=== PATIENT | female | born 1990 | race Caucasian/White ===

== ENCOUNTER 2019-11-20 18:12 | Emergency (ER) | payer MEDICAID ==
[2019-11-20 18:37] LABS: ABS Lymphocytes 2.4 10^3/ul (1.0-4.8); ABS Monocytes 0.6 10^3/ul (0-0.8); ABS Neutrophils 2.2 10^3/ul (1.5-7.7); Eosinophil % 0.1 %; Hematocrit 40 % (35-47); Hemoglobin 13.3 g/dL (12.0-16.0); Lymphocyte % 46.3 %; Mean Corpuscular HGB Conc 34 g/dL (31-36); Mean Corpuscular Hemoglobin 30 pg (27-31); Mean Corpuscular Volume 88 fL (80-97); Mean Platelet Volume 7.8 fL (7.4-10.4); Nucleated Red Blood Cells % 0.1; Platelet Count 169 10^3/uL (150-450); Red Cell Distribution Width 13 % (10-15); White Blood Count 5.2 10^3/uL (3.5-10.8)
--- OUTSIDE RECORDS SUMMARY | 2019-11-20 18:44 | XMS REPORT | Summary of Care ---
:1990 Author Organization [facility] Address [address] [place] [address] Care Team Providers Name Role Phone Unavailable Primary Care Provider Unavailable Encounter Details Date Type Department Care Team Description 10/20/2019 Hospital Encounter [facility] [address] [place] [address] Allergies No Known Allergiesdocumented as of this encounter (statuses as of 11/04/2019) Medications No known medicationsdocumented as of this encounter (statuses as of 11/04/2019) Active Problems No known active problemsdocumented as of this encounter (statuses as of 2018) Social History Tobacco Use Types Packs/Day Years Used Date Never Assessed Sex Assigned at Date Recorded Not on file Job Start Date Occupation Industry Not on file Not on file Not on file Travel History Travel Start Travel End No recent travel history available. documented as of this encounter Last Filed Vital Signs Not on filedocumented in this encounter Plan of Treatment Not on filedocumented as of this encounter Results Not on filedocumented in this encounter
--- OUTSIDE RECORDS SUMMARY | 2019-11-20 18:44 | XMS REPORT ---
:1990 Author Organization [facility] Care Team Providers Name Role Phone ELISHA KEENE Unavailable Unavailable SNYDER, AKBAR, Unavailable Unavailable Allergies and Adverse Reactions Allergen Qualifier Severity Reaction(s) Comments No Known Drug Allergy Problems Problem Onset Date Resolved Date Status Comments Diabetes Mellitus Active Hypertension Active Mental Illness Active Suicide Attempt Active Hospital Admission Diagnosis Admission Diagnosis Onset Date Resolved Date Status Comments Anxiety Reaction Active Depression Active Suicidal Ideation Active Medications Home Medications Details Albuterol Sulfate HFA Inhalation metFORMIN HCl Oral Toprol XL Oral Medications Administered Medication Orders Details hydrOXYzine HCl Oral 25 mg (NOW) Administered Route Dose Bolus/Duration Rate/Duration Additive/Diluents/ Constituents Location Comments Date/Time Medications hydrOXYzine PO 25 mg Given: HCl Oral 10/19/2019 23:38 Hospital Discharge Medications Hospital Discharge Prescribed Medication None Procedures Procedure Date Performed Comments No information available Functional Status Functional and Cognitive Assessment Documentation Date Condition Status No impairments noted 10/19/2019 Active Immunizations Medication Dose/Units Lot# Exp. Date Bracelet And Brooch Maker Name Given No information available Results , URINE([facility]IT[place]: 10/19/2019 19:38) [facility] 19:49[facility]Final Results Test Result Flag Reference Range , URINE NEGATIVE NEGATIVE URINALYSIS (W/C+S IF INDICATED)(CATRACHITO: 10/19/2019 19:39) ([facility] 10/19/2019 20: 03)Final Results Test Result Flag Reference Range URINE COLOR YELLOW YELLOW URINE APPEARANCE CLEAR CLEAR URINE SPECIFIC GRAVITY 1.010 1.003-1.035 URINE LEUKOCYTES SMALL(1+) AB NEGATIVE URINE NITRITE NEGATIVE NEGATIVE URINE PH 6.0 5.0-8.0 URINE PROTEIN NEGATIVE NEGATIVE mg/dl URINE GLUCOSE NEGATIVE NEGATIVE mg/dl URINE KETONES NEGATIVE NEGATIVE mg/dl URINE UROBILINOGEN 0.2 NORMAL OR <1 mg/dl URINE BILIRUBIN NEGATIVE NEGATIVE URINE OCCULT BLOOD NEGATIVE NEGATIVE WBC 6-10 AB 0-5 hpf WBC CLUMPS FEW AB NEGATIVE hpf RBC 0-1 0-3 hpf BACTERIA TRACE AB NEGATIVE hpf EPITHELIAL CELLS 2-5 0-5 hpf URINE C+S IF INDICATED PERFORMED NOT INDICATED DRUG SCREEN,URINE(CATRACHITO: 10/19/2019 20:27) ([facility] 10/19/2019 20:27)Final Results Test Result Flag Reference Range SCREEN INTERPRETATION SEE NOTE Methodology for the test(s) below is for screening purposes only and the reference range for these tests is Negative. Positive results should be considered presumptive. . . AMPHETAMINES NEGATIVE Screen Cutoff 1000 ng/ml. . BARBITURATES NEGATIVE Screen Cutoff 200 ng/ml. . BENZODIAZEPINES NEGATIVE Screen Cutoff 300 ng/ml. . COCAINE NEGATIVE Screen Cutoff 300 ng/ml. . OPIATES NEGATIVE Screen Cutoff 300 ng/ml. . PHENCYCLIDINE (PCP) NEGATIVE Screen Cutoff 25 ng/ml. . CANNABIS (THC) NEGATIVE Screen Cutoff 50 ng/ml. . TRICYCLIC ANTIDEPRESSNT NEGATIVE NEGATIVE Screen Cutoff 500 ng/ml. . CBC(CATRACHITO: 10/19/2019 19:54) ([facility] 10/19/2019 19:59)Final Results Test Result Flag Reference Range WBC 6.6 4.3-10.9 x10E3/uL RBC 4.45 3.80-5.30 x10E6/uL HEMOGLOBIN 13.0 11.8-15.8 g/dl HEMATOCRIT 40.1 35.0-47.0 % MCV 90.1 82.0-98.0 fl MCH 29.2 27.5-33.5 pg MCHC 32.4 32.0-36.0 g/dl RDW 12.4 11.5-14.5 % PLATELET COUNT 148 130-400 x10E3/uL MPV 10.6 8.6-12.6 fl SEGMENTED NEUTROPHILS 48.0 44.0-74.0 % LYMPHOCYTES 34.6 15.0-45.0 % MONOCYTES 16.3 H 2.0-13.0 % EOSINOPHILS 0.9 0.0-6.0 % BASOPHILS 0.2 0.0-2.0 % NEUTROPHIL ABSOLUTE 3.2 1.4-7.0 x10E3/uL LYMPHOCYTES ABSOLUTE 2.3 1.0-3.4 x10E3/uL MONOCYTE ABSOLUTE 1.1 H 0.2-1.0 x10E3/uL EOSINOPHIL ABSOLUTE 0.1 0.0-0.5 x10E3/uL BASOPHIL ABSOLUTE 0.0 0.0-0.2 x10E3/uL COMPREHENSIVE W/RATIOS(CATRACHITO: 10/19/2019 19:54) ([facility] 20:14)Final Results Test Result Flag Reference Range GLUCOSE 153 H 70-100 mg/dl BUN 26 H 4-18 mg/dl CREATININE, SERUM 0.95 0.50-1.10 mg/dl SODIUM 141 136-146 mmol/l POTASSIUM 3.6 3.5-5.3 mmol/l CHLORIDE 108 96-109 mmol/l CARBON DIOXIDE 20 20-32 mmol/l ALBUMIN 3.9 3.5-5.0 g/dl PROTEIN, TOTAL 6.8 6.4-8.2 g/dl CALCIUM 8.7 8.4-10.4 mg/dl ALKALINE PHOSPHATASE 63 10-118 U/l SGOT (AST) 18 3-40 U/l SGPT (ALT) 25 7-50 U/l BILIRUBIN, TOTAL 0.12 L 0.30-1.20 mg/dl BUN/CREATININE RATIO 27.4 H 6.0-20.0 GLOBULIN 2.9 2.3-3.5 g/dl ANION GAP 13.0 7.0-16.0 mmol/l OSMOLALITY (CALCULATED) 289 280-300 mos/kg A/G RATIO 1.3 1.0-2.0 ETHANOL (BLOOD)(CATRACHITO: 10/19/2019 19:54) ([facility] 20:14)Final Results Test Result Flag Reference Range ETHANOL (BLOOD) 0.002 0.000-0.010 % This test result should only be used for MEDICAL or THERAPEUTIC purposes. ACETAMINOPHEN(CATRACHITO: 10/19/2019 19:54) ([facility] 10/19/2019 20:14)Final Results Test Result Flag Reference Range ACETAMINOPHEN <15.0 15.0-25.0 ug/ml SALICYLATE(CATRACHITO: 10/19/2019 19:54) ([facility] 10/19/2019 20:14)Final Results Test Result Flag Reference Range SALICYLATE <0.5 0.0-29.9 mg/dL EGFR (CALCULATED)(CATRACHITO: 10/19/2019 19:54) ([facility]/2019 20:14)Final Results Test Result Flag Reference Range EGFR 80 >59 mL/min/1.73m2 EGFR, -DJIBOUTIAN 93 >59 mL/min/1.73m2 Note: Persistent reduction for 3 months or more in an eGFR <60 mL/min/1.73m2 defines CKD. Patients with eGFR values >=60 mL/min/1.73m2 may also have CKD if evidence of persistent proteinuria is present. Additional information may be found at www.kidney.org/[email or web address]. TSH(CATRACHITO: 10/19/2019 19:55) ([facility] 10/19/2019 20:22)Final Results Test Result Flag Reference Range TSH (THYROTROPIN) 0.215 L 0.490-4.670 uIU/ml Social History Social History Element Description Effective Dates Sex Female 1990 Smoking never smoker Unknown Vital Signs Weight: 108.8 kg (240 lb) stated at 10/19/2019 7:45:00 PMHeight: 274.3 cm (108 inches) Per Patient at 10/19/2019 7:45:00 PMBMI (Body Mass Index): 14.5 kg/m2 at 10/19/2019 7:45:00 PM Date/Time Blood Pressure Heart Rate Respiratory Rate Temperature O2 Saturation 10/20/2019 102/67 mmHg 91 /minute 16 /minute 36.72 C 97% 2:56:10 AM 10/19/2019 95 /minute 18 /minute 96% 8:15:00 PM 10/19/2019 90 /minute 20 /minute 96% 8:14:00 PM 10/19/2019 91 /minute 19 /minute 97% 8:13:00 PM 10/19/2019 92 /minute 12 /minute 98% 8:12:00 PM 10/19/2019 94 /minute 20 /minute 97% 8:11:00 PM 10/19/2019 96 /minute 24 /minute 97% 8:10:00 PM 10/19/2019 94 /minute 21 /minute 98% 8:09:00 PM 10/19/2019 94 /minute 17 /minute 97% 8:08:00 PM 10/19/2019 96 /minute 22 /minute 97% 8:07:00 PM 10/19/2019 91 /minute 15 /minute 97% 8:06:00 PM 10/19/2019 100 /minute 15 /minute 98% 8:05:00 PM 10/19/2019 98 /minute 18 /minute 98% 8:04:00 PM 10/19/2019 96 /minute 25 /minute 96% 8:03:00 PM 10/19/2019 91 /minute 17 /minute 96% 8:02:00 PM 10/19/2019 105/69 mmHg 93 /minute 29 /minute 95% 8:01:00 PM 10/19/2019 92 /minute 28 /minute 96% 8:00:00 PM 10/19/2019 93 /minute 19 /minute 97% 7:59:00 PM 10/19/2019 96 /minute 27 /minute 96% 7:58:00 PM 10/19/2019 94 /minute 27 /minute 95% 7:57:00 PM 10/19/2019 97 /minute 28 /minute 96% 7:56:00 PM 10/19/2019 95 /minute 27 /minute 95% 7:55:00 PM 10/19/2019 95 /minute 22 /minute 95% 7:54:00 PM 10/19/2019 99 /minute 25 /minute 94% 7:53:00 PM 10/19/2019 94 /minute 19 /minute 95% 7:52:00 PM 10/19/2019 95 /minute 19 /minute 95% 7:51:00 PM 10/19/2019 96 /minute 22 /minute 95% 7:50:00 PM 10/19/2019 94 /minute 28 /minute 94% 7:49:00 PM 10/19/2019 112/68 mmHg 96 /minute 22 /minute 37.11 C 96% 7:48:11 PM 10/19/2019 97 /minute 25 /minute 94% 7:48:00 PM 10/19/2019 100 /minute 19 /minute 95% 7:47:00 PM 10/19/2019 97 /minute 21 /minute 94% 7:46:00 PM 10/19/2019 97 /minute 21 /minute 94% 7:45:00 PM Hospital Discharge Instructions Instruction Thank you for visiting the [facility]-Emergency Department. You have been evaluated today by ELISHA KEENE MD for the following condition(s) : Suicidal ideation. Depression. Anxiety reaction. The following test(s) and/or procedure(s) were performed during your visit today. Laboratory Tests Acetaminophen LevelRPRAlcoholSalicylate LevelCBC w DiffTSHComprehensive PanelUrinalysis, Culture if indicatedPregnancy Urine QualUrine Drug Screen Diagnostic Studies EKG Hospital Discharge Diagnoses Diagnosis Onset Date Resolved Date Status Comments Anxiety Reaction Active Depression Active Suicidal Ideation Active Reason For Visit 941 Reason For Referral None Health Concerns Section Concern Status No information available Medical Equipments Implanted Device Manufacturing Date Expiration Date No information available Assessments Assessment You have been evaluated by ELISHA KEENE MD for the following conditions: Suicidal ideation. Anxiety reaction. Depression. The following test(s) and/or procedure(s) were performed during your visit today. Laboratory Tests: Acetaminophen Level, Alcohol, CBC w Diff, Comprehensive Panel, Urine Qual, RPR, Salicylate Level, TSH, Urinalysis, Culture if indicated, and Urine Drug Screen Diagnostic Studies: EKG Goals Observation Goal Status No information available Treatment Plan Planned Care Start Date No information available Encounters Encounter Diagnosis Location Date Anxiety Reaction [facility] 10/19/2019 Depression [facility] 10/19/2019 Suicidal Ideation [facility] 10/19/2019
--- OUTSIDE RECORDS SUMMARY | 2019-11-20 18:44 | XMS REPORT ---
:1990 Author Organization [facility] Care Team Providers Name Role Phone SHON SUGGS Unavailable Unavailable Allergies and Adverse Reactions Allergen Qualifier Severity Reaction(s) Comments Benzodiazepines Problems Problem Onset Date Resolved Date Status Comments Adjustment Disorder RuleOut Anxiety Reaction Active Asthma Active Bipolar Disorder RuleOut Depression Active Diabetes Mellitus Active Hypertension Active Mental Illness Active Suicidal Ideation Active Suicide Attempt Active Hospital Admission Diagnosis Admission Diagnosis Onset Date Resolved Date Status Comments Suicidal Ideation Active Medications Home Medications Details [place] Maintena Intramuscular Prefilled Syringe 300 mg, monthly, last dose nov.01 Amoxicillin-Pot Clavulanate Oral Tablet 875-125 mg, 1 tablet 2x a day, Started : 11/02/2019, Stopped: 11/07/2019, 5 days Benztropine 1 milligram 2 Times Per Day chlorproMAZINE HCl Oral Tablet 50 mg, 1 tablet daily, @ noon chlorproMAZINE HCl Oral Tablet 100 mg, 1 tablet 2x a day Depakote Sprinkles Oral Capsule Delayed Release Sprinkle 125 mg, 1000 mg 2x a day Diclofenac Sodium Transdermal Gel 1 %, 2 grams 4x a day metFORMIN 500 milligram 2 Times Per Day Mirtazapine Oral 30 mg Once Daily At Bedtime Medications Administered Medication Orders Details Augmentin Oral 875 mg Benztropine Mesylate Oral 1 mg (NOW x1) chlorproMAZINE HCl Oral 50 mg (NOW x1) Depakote Oral 1000 mg (NOW x1, Do not crush or chew) metFORMIN HCl Oral 500 mg (NOW x1) Administered Route Dose Bolus/Duration Rate/Duration Additive/Diluents/ Constituents Location Comments Date/Time Medications Augmentin PO 875 Given: Oral mg 11/05/2019 12:43 Benztropine PO 1 mg Given: Mesylate Oral 11/05/2019 12:44 chlorproMAZIN PO 50 mg Given: E HCl Oral 11/05/2019 12:44 Depakote PO 1000 Given: Sprinkles mg 11/05/2019 Oral 12:45 metFORMIN HCl PO 500 Given: Oral mg 11/05/2019 12:45 Hospital Discharge Medications Hospital Discharge Prescribed Medication None Procedures Procedure Date Performed Comments Carpal Tunnel Surgery Functional Status Functional and Cognitive Assessment Documentation Date Condition Status No information available Immunizations Medication Dose/Units Lot# Exp. Date [place]yer Name Given No information available Results VALPROIC ACID(CATRACHITO: 11/05/2019 12:22) ([facility] 11/05/2019 12:58)Final Results Test Result Flag Reference Range VALPROIC ACID 43.3 L 50.0-100.0 ug/ml For patients taking once-daily Divalproex-ER(extended release), a blood sample should be taken pre-dose, optimally 24 hours, (but at least 18 hours)after the previous dose to most closely approximate true Valproic Acid trough concentration. Specimens drawn less than 24 hours after the last dose may result in Valproic Acid concentrations up to 25% higher than true trough levels. Social History Social History Element Description Effective Dates Sex Female 1990 Smoking never smoker Unknown Vital Signs Weight: 108.8 kg (240 lb) stated at 11/05/2019 9:29:59 AMHeight: 165.0 cm (65 inches) Per Patient at 11/05/2019 9:29:59 AMBMI (Body Mass Index): 40.0 kg/m2 at 11/05/2019 9:29:59 AM Date/Time Blood Pressure Heart Rate Respiratory Rate Temperature O2 Saturation 11/05/2019 114/84 mmHg 103 /minute 18 /minute 36.67 C 97% 3:38:29 PM 11/05/2019 132/85 mmHg 105 /minute 16 /minute 36.72 C 98% 12:30:00 PM 11/05/2019 135/95 mmHg 135 /minute 16 /minute 37.17 C 97% 9:45:02 AM Hospital Discharge Instructions Instruction Thank you for visiting the [facility]-Emergency Department. You have been evaluated today by SHON SUGGS MD for the following condition(s): Suicidal ideation. The following test(s) and/or procedure(s) were performed during your visit today. Laboratory Tests Valproic Acid (Depakene) Hospital Discharge Diagnoses Diagnosis Onset Date Resolved Date Status Comments Suicidal Ideation Active Reason For Visit 941 - homeless/SI Reason For Referral None Health Concerns Section Concern Status No information available Medical Equipments Implanted Device Manufacturing Date Expiration Date No information available Assessments Assessment You have been evaluated by SHON SUGGS MD for the following conditions: Suicidal ideation. The following test(s) and/or procedure(s) were performed during your visit today. Laboratory Tests: Valproic Acid (Depakene Goals Observation Goal Status No information available Treatment Plan Planned Care Start Date No information available Encounters Encounter Diagnosis Location Date Suicidal Ideation [facility] 11/05/2019
--- OUTSIDE RECORDS SUMMARY | 2019-11-20 18:44 | XMS REPORT | Summary of Care ---
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 Abs Monocyte 0.80 0 - 0.8 [facility] 10*3/uL [facility] CG Abs Eosinophil 0.12 0 - 0.5 [facility] 10*3/uL [facility] Abs Basophil 0.02 0 - 0.2 [facility] 10*3/uL [facility] Nucleated Red Blood 0 0 - 0 [facility] Cells /100{WBCs} [facility] at Specimen EDTA Whole Blood Performing Organization Address City/State/Zipcode Phone Number [facility] PATHOLOGY AT [facility] [address] [place] [address] [facility] at [address] [place] [address] POCT glucose, docked (10/27/2019 7:44 AM EST) POC Glucose 133 70 - 140 mg/dL [facility] POC Specimen Whole Blood Performing Organization Address [facility] Phone Number POINT OF CARE TEST [address] [place] [address] [facility] POC [address] [place] [address] Valproic acid level, total (10/27/2019 6:35 AM EST) Valproic Acid 78 50 - 100 ug/ml [facility] at Specimen Plasma Performing Organization Address [facility] Phone Number [facility] PATHOLOGY AT [facility] [address] [place] [address] [phone] [facility] at [address] [place] [id number] XR Elbow 2 Views Left (10/26/2019 5:45 PM EST) Specimen Narrative Performed At PROCEDURE INFORMATION: [facility] Exam: XR Left Elbow Exam date and time: 10/26/2019 5:28 PM Age: 29 years old Clinical history: Pain; Elbow; Left; Additional info: Patient has left elbow swelling. TECHNIQUE: Imaging protocol: XR Left elbow. Views: 1 or 2 views. COMPARISON: No relevant prior studies available. FINDINGS: Bones/joints: Small olecranon spur. Soft tissues: Normal. Other findings: Limited lateral view. IMPRESSION: 1. Limited exam. 2. No definite evidence of acute bony or joint abnormality. THIS DOCUMENT HAS BEEN ELECTRONICALLY SIGNED BY KENNETH HAMILTON MD Procedure Note Interface, Received Via [email or web address] System - 10/26/2019 7:26 PM EST PROCEDURE INFORMATION: Exam: XR Left Elbow Exam date and time: 10/26/2019 5:28 PM Age: 29 years old Clinical history: Pain; Elbow; Left; Additional info: Patient has left elbow swelling. TECHNIQUE: Imaging protocol: XR Left elbow. Views: 1 or 2 views. COMPARISON: No relevant prior studies available. FINDINGS: Bones/joints: Small olecranon spur. Soft tissues: Normal. Other findings: Limited lateral view. IMPRESSION: 1. Limited exam. 2. No definite evidence of acute bony or joint abnormality. THIS DOCUMENT HAS BEEN ELECTRONICALLY SIGNED BY KENNETH HAMILTON MD Performing Organization Address City/State/Zipcode Phone Number [facility] [address] [place] [address] POCT glucose, docked (10/26/2019 8:05 AM EST) POC Glucose 101 70 - 140 mg/dL [facility] POC Specimen Whole Blood Performing Organization Address City/[facility] Phone Number POINT OF CARE TEST [address] [place] [address] [facility] POC [address] [place] [address] POCT glucose, docked (10/25/2019 5:30 PM EST) POC Glucose 336 (H) 70 - 140 mg/dL [facility] POC Specimen Whole Blood Performing Organization Address [facility] Phone Number POINT OF CARE TEST [address] [place] [address] [facility] POC [address] [place] [address] POCT glucose, docked (10/25/2019 9:09 AM EST) POC Glucose 157 (H) 70 - 140 mg/dL [facility] POC Specimen Whole Blood Performing Organization Address [facility] Phone Number POINT OF CARE TEST [address] [place] [address] [facility] POC [address] [place] [address] documented in this encounter Visit Diagnoses Diagnosis Borderline personality disorder - Primary Bipolar disorder Bipolar disorder, unspecified Intellectual disability Unspecified intellectual disabilities Class 3 severe obesity due to excess calories without serious comorbidity with body mass index (BMI) of 40.0 to 44.9 in adult Type 2 diabetes mellitus without complication, without long-term current use of insulin documented in this encounter Administered Medications Medication Order MAR Action Action Date Dose Rate Site acetaminophen (TYLENOL) tablet Given 10/28/2019 3:25 PM EST 650 mg 650 mg 650 mg, Oral, Every 4 hours PRN, Mild Pain (Pain Scale Score 1-3), Pain, Starting 10/23/19 at 2256, For 30 days, MDD 4, Given 10/27/2019 8:28 AM EST 650 mg Given 10/26/2019 4:40 PM EST 650 mg amoxicillin-clavulanate (AUGMENTIN) Given 11/01/2019 7:59 AM EST 1 tablet 875-125 MG per tablet 1 tablet 1 tablet, Oral, Every 12 hours Standard (2 times per day), First dose (after last modification) on Mon10/27/19 at 1300, For 10 days Given 10/31/2019 9:11 PM EST 1 tablet Given 10/31/2019 8:23 AM EST 1 tablet benztropine (COGENTIN) tablet 1 mg Given 11/01/2019 7:58 AM EST 1 mg 1 mg, Oral, 2 Times Daily, First dose on Mon10/24/19 at 0900, For 30 days Given 10/31/2019 9:11 PM EST 1 mg Given 10/31/2019 8:23 AM EST 1 mg chlorproMAZINE (THORAZINE) tablet 100 mg Given 10/29/2019 7:17 PM EST 100 mg 100 mg, Oral, Three Times Daily-PRN, agitation, Starting Mon10/25/19 at 1412, For 30 days Given 10/27/2019 9:47 AM EST 100 mg Given 10/26/2019 4:40 PM EST 100 mg chlorproMAZINE (THORAZINE) tablet 100 mg Given 11/01/2019 7:58 AM EST 100 mg 100 mg, Oral, 2 Times Daily, First dose (after last modification) on Mon10/25/19 at 2100, For 10 days Given 10/31/2019 9:21 PM EST 100 mg Given 10/31/2019 8:23 AM EST 100 mg chlorproMAZINE (THORAZINE) tablet 50 mg Given 11/01/2019 12:35 PM EST 50 mg 50 mg, Oral, Every 24 hours, First dose on Mon10/29/19 at 1300, For 30 days Given 10/31/2019 12:38 PM EST 50 mg Given 10/30/2019 1:37 PM EST 50 mg Diclofenac Sodium (VOLTAREN) 1 % gel 2 g Given 11/01/2019 7:58 AM EST 2 g 2 g, Topical, Four Times Daily Standard, First dose on Mon10/26/19 at 1300, For 30 days, Apply to left arm, Given 10/31/2019 9:14 PM EST 2 g Given 10/31/2019 6:32 PM EST 2 g divalproex (DEPAKOTE SPRINKLE) capsule Given 11/01/2019 7:58 AM EST 1,000 mg 1,000 mg 1,000 mg, Oral, Every 12 hours Standard (2 times per day), First dose on Sharda 10/24/19 at 0900, For 30 days, Do not crush or chew, Given 10/31/2019 9:13 PM EST 1,000 mg Given 10/31/2019 8:23 AM EST 1,000 mg hydrOXYzine (ATARAX) tablet 50 mg Given 10/30/2019 10:28 AM EST 50 mg 50 mg, Oral, Every 6 hours PRN, Anxiety, Sleep, Starting 10/23/19 at 2256, For 30 days Given 10/29/2019 10:25 AM EST 50 mg Given 10/28/2019 3:26 PM EST 50 mg ibuprofen (ADVIL,MOTRIN) tablet 400 mg Given 10/31/2019 12:29 PM EST 400 mg 400 mg, Oral, Every 6 hours PRN, Moderate Pain (Pain Scale Score 4-6), Starting 10/27/19 at 1224, For 699 hours, Take with food., Given 10/28/2019 1:11 PM EST 400 mg Given 10/28/2019 2:47 AM EST 400 mg mirtazapine (REMERON) tablet 30 mg Given 10/31/2019 9:11 PM EST 30 mg 30 mg, Oral, Nightly, First dose (after last modification) on Sharda 10/24/19 at 2200, For 30 days Given 10/30/2019 9:20 PM EST 30 mg Given 10/29/2019 8:00 PM EST 30 mg phenylephrine-mineral oil-petrolatum (PREPARATION Given 10/29/2019 7:59 PM EST H) rectal ointment Rectal, 2 Times Daily PRN, Hemorrhoids, Starting 10/28/19 at 1228, For 30 days Given 10/29/2019 9:45 AM EST Given 10/28/2019 2:47 PM EST Medication Order MAR Action Action Date Dose Rate Site ARIPiprazole ER (ABILIFY Given 10/30/2019 1:56 PM 300 mg Right Deltoid MAINTENA) extended-release EST injectable suspension 300 mg 300 mg, Intramuscular, Once, Mon10/30/19 at 1300, For 1 dose chlorproMAZINE (THORAZINE) tablet 100 mg Given 10/25/2019 10:20 AM EST 100 mg 100 mg, Oral, Before Breakfast, First dose (after last modification) on Mon10/25/19 at 1100, For 30 days chlorproMAZINE HCl (THORAZINE) Given 10/24/2019 4:54 PM EST 100 mg Right Deltoid injection 100 mg 100 mg, Intramuscular, Once, [facility] 10/24/19 at 1645, For 1 dose, Inject slowly, deep into upper outer quadrant of buttock. Avoid skin contact with solution; may cause contact dermatitis. Do not administer SubQ (tissue damage and irritation may occur)., diphenhydrAMINE (BENADRYL) injection 50 mg Given 10/24/2019 3:04 PM EST 50 mg 50 mg, Intramuscular, Once, Sharda 10/24/19 at 1415, For 1 dose haloperidol lactate (HALDOL) injection 5 mg Given 10/24/2019 3:04 PM EST 5 mg 5 mg, Intramuscular, Once, Sharda 10/24/19 at 1415, For 1 dose ibuprofen (ADVIL,MOTRIN) tablet 200 mg Given 10/27/2019 6:22 AM EST 200 mg 200 mg, Oral, Every 6 hours PRN, Moderate Pain (Pain Scale Score 4-6), Starting 10/26/19 at 1528, For 30 days, Take with food., Given 10/26/2019 5:57 PM EST 200 mg LORazepam (ATIVAN) injection 2 mg Given 10/24/2019 3:04 PM EST 2 mg 2 mg, Intramuscular, Once, Sharda 10/24/19 at 1415, For 1 dose metFORMIN (GLUCOPHAGE) tablet 500 mg Given 10/24/2019 8:56 AM EST 500 mg 500 mg, Oral, 2 Times Daily With Meals, Indications: Type 2 Diabetes Mellitus, First dose on Mon10/24/19 at 0900, For 30 days metFORMIN (GLUCOPHAGE) tablet 500 mg Given 10/31/2019 8:23 AM EST 500 mg 500 mg, Oral, Daily with Breakfast, Indications: Type 2 Diabetes Mellitus, First dose (after last modification) on Mon10/25/19 at 0800, For 7 days Given 10/30/2019 8:49 AM EST 500 mg Given 10/29/2019 9:22 AM EST 500 mg documented in this encounter
--- OUTSIDE RECORDS SUMMARY | 2019-11-20 18:44 | XMS REPORT ---
:1990 Author Organization [facility] Care Team Providers Name Role Phone ASHLEY MUNOZ Unavailable Unavailable Allergies and Adverse Reactions Allergen Qualifier Severity Reaction(s) Comments Benzodiazepines Problems Problem Onset Date Resolved Date Status Comments Anxiety Reaction Active Asthma Active Bipolar Disorder RuleOut Depression Active Diabetes Mellitus Active Hypertension Active Mental Illness Active Suicidal Ideation Active Suicide Attempt Active Hospital Admission Diagnosis Admission Diagnosis Onset Date Resolved Date Status Comments No information available Medications Home Medications Details No information available Medications Administered Administered Route Dose Bolus/Duration Rate/Duration Additive/Diluents/ Constituents Location Comments Date/Time Medications No information available Hospital Discharge Medications Hospital Discharge Prescribed Medication None Procedures Procedure Date Performed Comments Carpal Tunnel Surgery Functional Status Functional and Cognitive Assessment Documentation Date Condition Status No impairments noted 11/04/2019 Active Immunizations Medication Dose/Units Lot# Exp. 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 11/05/2019 00:44)Final Results Test Result Flag Reference Range , URINE NEGATIVE NEGATIVE DRUG SCREEN,URINE(CATRACHITO: 11/05/2019 00:11) ([facility] 11/05/2019 00:51)Final Results Test Result Flag Reference Range SCREEN [...] NEGATIVE NEGATIVE Screen Cutoff 500 ng/ml. . URINALYSIS (W/C+S IF INDICATED)(CATRACHITO: 11/05/2019 00:11) ([facility] 11/05/[facility] 01: 07)Final Results Test Result Flag Reference Range URINE COLOR YELLOW YELLOW URINE APPEARANCE CLEAR CLEAR URINE SPECIFIC GRAVITY 1.015 1.003-1.035 URINE LEUKOCYTES SMALL(1+) AB NEGATIVE URINE NITRITE NEGATIVE NEGATIVE URINE PH 6.0 5.0-8.0 URINE PROTEIN NEGATIVE NEGATIVE mg/dl URINE GLUCOSE NEGATIVE NEGATIVE mg/dl URINE KETONES NEGATIVE NEGATIVE mg/dl URINE UROBILINOGEN 0.2 NORMAL OR <1 mg/dl URINE BILIRUBIN NEGATIVE NEGATIVE URINE OCCULT BLOOD NEGATIVE NEGATIVE WBC 11-20 AB 0-5 hpf RBC 1-2 0-3 hpf BACTERIA TRACE AB NEGATIVE hpf EPITHELIAL CELLS 5-9 0-5 hpf MUCOUS THREADS 2+ AB NEGATIVE hpf URINE C+S IF INDICATED PERFORMED AB INDICATED URINE CULTURE REPORT TO FOLLOW. ELECTROCARDIOGRAM-EMERGENCY DEPT (MsgRcvd 11/05/2019 06:14)Corrected results Test Result Flag Reference Range ADDENDUM Vent Rate: 110 bpm RR Interval: 545 msec MI Interval: 164 msec QRS Duration: 91 msec QT Interval: 327 msec QTC Interval: 443 msec P-R-T [place]: 17 - -3 - 29 degrees Sinus tachycardia...rate> 99 normal axis. normal QRS. no acute ST elevation. QT intervals normal QRS AMPLITUDE VARIABILITY- POSSIBLY RESPIRATORY CLIN JESSICA REC Study Date: Electronically Signed By: TONA GIRON MD Date: 11/05/2019 06:14 ORIGINAL Vent Rate: 110 bpm RR Interval: 545 msec MI Interval: 164 msec QRS Duration: 91 msec QT Interval: 327 msec QTC Interval: 443 msec P-R-T [place]: 17 - -3 - 29 degrees Sinus tachycardia...rate> 99 normal axis. normal QRS. no acute ST elevation. QT intervals normal Study Date: Electronically Signed By: ASHLEY MUNOZ MD Date: 11/05/2019 04:26 COMPREHENSIVE W/RATIOS(CATRACHITO: 11/05/2019 00:43) ([facility] [place]/05/[place] 01:04)Final Results Test Result Flag Reference Range GLUCOSE 140 H 70-100 mg/dl BUN 24 H 4-18 mg/dl CREATININE, SERUM 1.14 H 0.50-1.10 mg/dl SODIUM 141 136-146 mmol/l POTASSIUM 4.2 3.5-5.3 mmol/l CHLORIDE 108 96-109 mmol/l CARBON DIOXIDE 23 20-32 mmol/l ALBUMIN 4.1 3.5-5.0 g/dl PROTEIN, TOTAL 7.6 6.4-8.2 g/dl CALCIUM 9.5 8.4-10.4 mg/dl ALKALINE PHOSPHATASE 65 10-118 U/l SGOT (AST) 17 3-40 U/l SGPT (ALT) 19 7-50 U/l BILIRUBIN, TOTAL 0.17 L 0.30-1.20 mg/dl BUN/CREATININE RATIO 21.1 H 6.0-20.0 GLOBULIN 3.5 2.3-3.5 g/dl ANION GAP 10.0 7.0-16.0 mmol/l OSMOLALITY (CALCULATED) 288 280-300 mos/kg A/G RATIO 1.2 1.0-2.0 ETHANOL (BLOOD)(CATRACHITO: 11/05/2019 00:43) ([facility] 11/05/2019 01:04)Final Results Test Result Flag Reference Range ETHANOL (BLOOD) 0.002 0.000-0.010 % This test result should only be used for MEDICAL or THERAPEUTIC purposes. ACETAMINOPHEN(CATRACHITO: 11/05/2019 00:43) ([facility] 11/05/2019 01:04)Final Results Test Result Flag Reference Range ACETAMINOPHEN <15.0 15.0-25.0 ug/ml SALICYLATE(CATRACHITO: 11/05/2019 00:43) ([facility] 11/05/2019 01:04)Final Results Test Result Flag Reference Range SALICYLATE <0.5 0.0-29.9 mg/dL EGFR (CALCULATED)(CATRACHITO: 11/05/2019 00:43) ([facility] 11/05/2019 01:04)Final Results Test Result Flag Reference Range EGFR 64 >59 mL/min/1.73m2 EGFR, -SRI LANKAN 75 >59 mL/min/1.73m2 Note: Persistent reduction for 3 months or more in an eGFR <60 mL/min/1.73m2 defines CKD. Patients with eGFR values >=60 mL/min/1.73m2 may also have CKD if evidence of persistent proteinuria is present. Additional information may be found at [email or web address]. TSH(CATRACHITO: 11/05/2019 00:43) (MsgRcvd 11/05/2019 01:11)Final Results Test Result Flag Reference Range TSH (THYROTROPIN) 8.530 H 0.490-4.670 uIU/ml CBC(CATRACHITO: 11/05/2019 00:43) (MsgRcvd 11/05/2019 01:36)Final Results Test Result Flag Reference Range WBC 6.1 4.3-10.9 x10E3/uL RBC 4.43 3.80-5.30 x10E6/uL HEMOGLOBIN 13.1 11.8-15.8 g/dl HEMATOCRIT 40.4 35.0-47.0 % MCV 91.2 82.0-98.0 fl MCH 29.6 27.5-33.5 pg MCHC 32.4 32.0-36.0 g/dl RDW 11.7 11.5-14.5 % PLATELET COUNT 179 130-400 x10E3/uL MPV 10.0 8.6-12.6 fl SEGMENTED NEUTROPHILS 46.2 44.0-74.0 % LYMPHOCYTES 41.4 15.0-45.0 % MONOCYTES 10.9 2.0-13.0 % EOSINOPHILS 1.3 0.0-6.0 % BASOPHILS 0.2 0.0-2.0 % NEUTROPHIL ABSOLUTE 2.8 1.4-7.0 x10E3/uL LYMPHOCYTES ABSOLUTE 2.5 1.0-3.4 x10E3/uL MONOCYTE ABSOLUTE 0.7 0.2-1.0 x10E3/uL EOSINOPHIL ABSOLUTE 0.1 0.0-0.5 x10E3/uL BASOPHIL ABSOLUTE 0.0 0.0-0.2 x10E3/uL Social History Social History Element Description Effective Dates Sex Female 1990 Smoking never smoker Unknown Vital Signs Weight: 108.8 kg (240 lb) at 11/04/2019 10:59:59 PMHeight: 165.0 cm (65 inches ) Per Patient at 11/04/2019 10:59:59 PMBMI (Body Mass Index): 40.0 kg/m2 at 10:59:59 PM Date/Time Blood Pressure Heart Rate Respiratory Rate Temperature O2 Saturation 11/05/2019 128/88 mmHg 90 /minute 16 /minute 98% 6:45:00 AM 11/04/2019 137/92 mmHg 123 /minute 22 /minute 36.72 C 98% 11:06:01 PM Hospital Discharge Instructions Instruction Thank you for visiting the [facility]. You have been evaluated today by ASHLEY MUNOZ MD for the following condition(s): Chronic bipolar I disorder currently in full remission. Moderately depressed without psychosis. Probable adjustment disorder with disturbance of conduct and depressed mood. The following test(s) and/or procedure(s) were performed during your visit today. Laboratory Tests Acetaminophen LevelRPRAlcoholSalicylate LevelCBC w DiffTSHComprehensive PanelUrinalysis, Culture if indicatedPregnancy Urine QualUrine Drug Screen Diagnostic Studies EKG INSTRUCTIONS Warnings: Further evaluation is necessary. Follow-up: Follow up with your healthcare provider Juan Miguel Franco as scheduled. Summary of care provided to follow-up provider. Follow up contact number [phone]. Understanding of the discharge instructions verbalized. ADDITIONAL INFORMATION Adjustment DisorderLife changes-work, family, parents, children-each can cause a great deal of stress in life. An adjustment disorder means you have trouble dealing with this change and stress. This problem can have ginny us results. You may feel helpless, depressed, make bad decisions, or even feel like you want to hurt yourself. Adjustment disorder can cause anxiety or depression. It is triggered by daily stresses such as: of a loved oneDivorceMarriageGeneral life changes such as changing or leaving a jobMovingIllness or other health issue for you or a family memberSexMoney Symptoms may include: Sadness or cryingAnxietyInsomniaPoor concentrationTrouble doing simple thingsNew problems at work or with family or friendsLoss of self-esteemSense of hopelessnessFeeling trapped or cut off from others With this condition, it is common to feel sad, guilty, hopeless, and restless. These feelings may continue for weeks or months. It can be helpful to identify what is causing the additional stress and ta ke steps to get extra support. If new stressful events do not happen, it is likely that you will gradually start feeling better. Home careIf you have been given a prescription for medicine,take it as directed.It helps to talk about your feelings and thoughts with family or friends who understand and support you. Follow-up care Follow up with your healthcare provider, or therapist as advised. Let them know if this condition does not improve or gets worse. When to seek medical adviceCall your healthcare provider right away if any of these happen: Worsening depression or anxietyFeeling out of controlThoughts of harming yourself or anotherBeing unable to care for yourself [phone] [employer] [place] [address], [place] [address]. All rights reserved. This information is not intended as a substitute for professional medical care. Always follow your healthcare professional's instructions. Bipolar DisorderBipolar disorder is an illness that causes strong mood swings between depression and "josé". It used to be called "manic depression." The mood swings are different from the normal ups and downs we all experience in our lives. They are more severe, last longer, and can interfere with work and relationships. These episodes are changes from our usual moods and behavior. Their severity can be mild, or drastic and explosive. In a manic episode, you may think fast and do things quickly. It may seem like you are getting a lot done. At first, this may feel very good. But in the extreme this can lead to a lifestyle that is disorganized, chaotic, and includes risky behavior (spending sprees, sexual acting-out, or drug use). In later stages, it may affect eating (no interest in food) and sleeping ( unable to sleep for days at a time). Speech may s peed up and become difficult for others to understand. You may appear to others as if you are in your own world.In a depressive episode, you may feel a lack of interest in normal activities. Sometimes there is sadness or guilt without an y clear reason. Thinking may become slow and there can be a lack energy or feeling of hopelessness. Some people have thoughts of harming themselves at this stage. Thoughts can even turn to suicide. Between these phases you may actually feel OK. This does not mean that the illness is gone. People with this disorder will usually have to treat it all of their life. Medicine and good care can greatly reduce the symptoms. The exact cause of this illness is unknown. However, there is a genetic link that makes a person more likely to get this problem. Also, the use of drugs such as speed (amphetamine) and cocaine increase the chances of this illness appearing. Home careHere is what you can do at home: Ongoing care and support help people manage this disease. Find a healthcare provider and therapist who meet your needs. Seek help when you feel like you may be heading into either a manic episode or a depressive state. Be sure to take your medicine and get regular blood work to check the levels of medicine in your body. Take the medicine and get the follow-up lab work as prescribed,even if you think you don't need to do it. Be certain to tell each of your healthcare providers about all of the prescription and [id number] medicines, and supplements you take.Certain supplements interact with medicines and result in da ngerous side effects. You can also use your pharmacist as a resource person when you have questions about medicine interactions.Talk with your family and trusted friends about your thoughts and feelings. Ask them to help you lila gnize behavior changes early so you can get help and medicines can be adjusted.Alcohol and drugs can bring on an episode, and make them worseIf your life is severely impacted by this illness, the Americans with Disabilities Act ( ADA) may prov aby help. The ADA protects people with chronic physical and mental health problems. If you are having trouble keeping jobs, managing workplace issues, or caring for yourself because of your bipolar diso rder, contact your local ADA office to see if it can help. The [place] Department of Justice operates a toll-free ADA information line at: 980.753.6079 (Voice); or 829-821-0550 (TTY). It can help you locate a local office. Follow-up care Follow up with your healthcare provider or therapist as advised. They can help you to find ways to improve your life. Call [phone] if any of these happen: You have suicidal thoughts, a plan, and the means to harm yourself, or serious thoughts of hurting someone elseTrouble breathingConfusionDrowsiness or trouble wakeningFainting or loss of consciousness Rapid heart rate, very low heart rate, or a new irregular heart rateSeizureNew chest pain that becomes more severe, lasts longer, or spreads into your shoulder , arm, neck, jaw, or back When to seek medical advice Call your healthcare provider right away if any of these happen: Feeling like your symptoms are getting worse (depression, agitation, and excess energy)Unable to eat or sleep for more than 48 hoursFeeling out of control (racing thoughts, or poor concentration)Feeling like you want to harm yourself or another Being unable to care for yourself [phone] [employer] [place] [address]. All rights reserved. This information is not intended as a substitute for professional medical care. Always follow your healthcare professional's instructions. Hospital Discharge Diagnoses Diagnosis Onset Date Resolved Date Status Comments No information available Reason For Visit 941. Reason For Referral None Health Concerns Section Concern Status No information available Medical Equipments Implanted Device Manufacturing Date Expiration Date No information available Assessments Assessment You have been evaluated by ASHLEY MUNOZ MD for the following conditions: Probable adjustment disorder with disturbance of conduct and depressed mood. Chronic bipolar I disorder currently in full remission. Moderately depressed without psychosis. The following test(s) and/or procedure(s) were performed during your visit today. Laboratory Tests: Acetaminophen Level, Alcohol, CBC w Diff, Comprehensive Panel, Urine Qual, RPR, Salicylate Level, TSH, Urinalysis, Culture if indicated, and Urine Drug Screen Diagnostic Studies: EKG Goals Observation Goal Status No information available Treatment Plan Planned Care Start Date No information available Encounters Encounter Diagnosis Location Date No information available [facility] 11/04/2019
--- OUTSIDE RECORDS SUMMARY | 2019-11-20 18:44 | XMS REPORT | Summary of Care ---
:1990 Author Organization [facility] Address [address] [place] [address] Care Team Providers Name Role Phone Unavailable Primary Care Provider Unavailable Encounter Details Date Type Department Care Team Description 11/05/2019 Hospital Encounter [facility] [address] [place] [address] Allergies No Known Allergiesdocumented as of this encounter (statuses as of 11/20/2019) Medications Medication Sig Dispensed Refills Start Date End Date Status Divalproex Sodium 125 Take 1,000 mg by 0 Active MG Oral Capsule mouth Two Times Delayed Release Daily Sprinkle (DEPAKOTE SPRINKLE) ARIPiprazole ER 300 MG Inject into the 0 Active Intramuscular muscle Suspension Reconstituted ER (ABILIFY MAINTENA) Benztropine Mesylate 1 Take 1 mg by 0 Active MG Oral Tablet mouth Two Times (COGENTIN) Daily metFORMIN HCl 500 MG Take 500 mg by 0 Active Oral Tablet mouth Two times (GLUCOPHAGE) daily with meals Mirtazapine 30 MG Oral Take 1 tablet by 30 tablet 0 10/31/2019 11/30/2019 Active Tablet (REMERON) mouth nightly chlorproMAZINE HCl 100 Take 1 tablet by 60 tablet 0 10/31/2019 11/30/2019 Active MG Oral Tablet mouth Two Times (THORAZINE) Daily chlorproMAZINE HCl 50 Take 1 tablet by 30 tablet 0 11/01/2019 12/01/2019 Active MG Oral Tablet mouth every 24 (THORAZINE) (twenty-four) hours Diclofenac Sodium 1 % Apply 2 g 1 Tube 0 10/31/2019 Active Transdermal Gel topically Four (VOLTAREN) times daily documented as of this encounter (statuses as of 11/20/2019) Active Problems Problem Noted Date Borderline personality disorder 10/24/2019 Intellectual disability 10/24/2019 Class 3 severe obesity due to excess calories without serious comorbidity 10/2019 with body mass index (BMI) of 40.0 to 44.9 in adult Type 2 diabetes mellitus without complication, without long-term current 10/24 use of insulin Bipolar disorder 10/23/2019 documented as of this encounter (statuses as of 11/20/2019) Social History Tobacco Use Types Packs/Day Years [...]
[2019-11-20 18:51] LABS: INR 0.91 (0.82-1.09)
[2019-11-20 18:55] LABS: Albumin/Globulin Ratio 1.4 (1-3); EGFR African American 69.8 (>60); EGFR Non-African American 57.7 (>60); Globulin 2.9 g/dL (2-4); Potassium 3.8 mmol/L (3.5-5.0); Total Bilirubin 0.2 mg/dL (0.2-1.0); Total Protein 6.9 g/dL (6.4-8.9)
[2019-11-20] MEDS ORDERED: Al Hydrox/Mg Hydrox/Simet LIQ* 30 ML UDC PO ONE (19:00)
[2019-11-20] MEDS ORDERED: Lidocaine 2% VISCOUS* 15 ML UDC PO ONE (19:00)
--- NOTE | 2019-11-20 19:14 | ED ---
HPI Chest Pain - HPI Summary HPI Summary: 29-year-old female presents with chest pain today. States it woke her up out of bed today. She states that it is substernal chest pain. She states that it is sharp in nature. Is worse when she tries to eat something. She denies any nausea or vomiting. She has tried tyenlol and ibuprofen with no relief of the pain. She is a type II diabetic. She denies any recent travel. She is on the depo. She denies any pain or swelling into her calf muscles. States feels like her heart rate is more elevated than normal. She is nonsmoker. Denies any drug use. she denies any family history of blood clots. Her aunt does have a history of cardiac disease. She has history asthma. Has a history of high blood pressure. States that she is in the area because she is in respite for an overdose a couple months ago. - History of Current Complaint Chief Complaint: EDChestPainROMI Time Seen by Provider: 11/20/19 18:43 Pain Intensity: 8 - Allergy/Home Medications Allergies/Adverse Reactions: Allergies Allergy/AdvReac Type Severity Reaction Status Date / Time No Known Allergies Allergy Verified 11/20/19 18:18 PMH/Surg Hx/FS Hx/Imm Hx Endocrine/Hematology History: Reports: Hx Diabetes Denies: Hx Anticoagulant Therapy Respiratory History: Reports: Hx Asthma Infectious Disease History: No Infectious Disease History: Denies: Traveled Outside the [place] in Last 30 Days - Family History Known Family History: Positive: Non-Contributory - Social History Alcohol Use: None Substance Use Type: Reports: None Smoking Status (MU): Never Smoked Tobacco Review of Systems Negative: Fever Positive: Chest Pain Positive: Shortness Of Breath, Cough Negative: Abdominal Pain, Vomiting All Other Systems Reviewed And Are Negative: Yes Physical Exam Triage Information Reviewed: Yes Vital Signs On Initial Exam: Initial Vitals Temp Pulse Resp BP Pulse Ox 97.1 F 94 18 152/98 100 11/20/19 18:15 11/20/19 18:15 11/20/19 18:15 11/20/19 18:15 11/20/19 18:15 Vital Signs Reviewed: Yes Appearance: Positive: Well-Appearing Skin: Positive: Warm, Dry Head/Face: Positive: Normal Head/Face Inspection Eyes: Positive: Normal, Conjunctiva Clear ENT: Positive: Pharynx normal, Other - white on mouth but no thrush noted in mouth Respiratory/Lung Sounds: Positive: Clear to Auscultation, Breath Sounds Present , Other - reproducible chest pain Cardiovascular: Positive: Normal, RRR Abdomen Description: Positive: Nontender, Soft Bowel Sounds: Positive: Present Musculoskeletal: Positive: Normal Neurological: Positive: Normal Psychiatric: Positive: Normal Procedures - Sedation Patient Received Moderate/Deep Sedation with Procedure: No Diagnostics - Vital Signs Vital Signs Temp Pulse Resp BP Pulse Ox 11/20/19 18:15 97.1 F 94 18 152/98 100 - Laboratory Lab Results: Lab Results 11/20/19 11/20/19 11/20/19 Range/Units 18:26 18:26 18:26 WBC 5.2 (3.5-10.8) 10^3/uL RBC 4.50 (3.70-4.87) 10^6 /uL Hgb 13.3 (12.0-16.0) g/dL Hct 40 (35-47) % MCV 88 (80-97) fL MCH 30 (27-31) pg MCHC 34 (31-36) g/dL RDW 13 (10-15) % Plt Count 169 (150-450) 10^3/uL MPV 7.8 (7.4-10.4) fL Neut % (Auto) 42.2 % Lymph % (Auto) 46.3 % [place] % (Auto) 10.9 % Eos % (Auto) 0.1 % Baso % (Auto) 0.5 % Absolute Neuts (auto) 2.2 (1.5-7.7) 10^3/ul Absolute Lymphs (auto) 2.4 (1.0-4.8) 10^3/ul Absolute Monos (auto) 0.6 (0-0.8) 10^3/ul Absolute Eos (auto) 0.0 (0-0.6) 10^3/ul Absolute Basos (auto) 0.0 (0-0.2) 10^3/ul Absolute Nucleated RBC 0.0 10^3/ul Nucleated RBC % 0.1 INR (Anticoag Therapy) 0.91 (0.82-1.09) D-Dimer, Quantitative < 200 (Less Than 230) ng/mL Sodium 140 (135-145) mmol/L Potassium 3.8 (3.5-5.0) mmol/L Chloride 110 (101-111) mmol/L Carbon Dioxide 23 (22-32) mmol/L Anion Gap 7 (2-11) mmol/L BUN 20 (6-24) mg/dL Creatinine 1.11 H (0.51-0.95) mg/dL Est GFR ( Amer) 69.8 (>60) Est GFR (Non-Af Amer) 57.7 (>60) BUN/Creatinine Ratio 18.0 (8-20) Glucose 118 H (70-100) mg/dL Calcium 9.0 (8.6-10.3) mg/dL Total Bilirubin 0.20 (0.2-1.0) mg/dL AST 18 (13-39) U/L ALT 25 (7-52) U/L Alkaline Phosphatase 58 (34-104) U/L Troponin I 0.00 (<0.03) ng/mL C-Reactive Protein Pending Total Protein 6.9 (6.4-8.9) g/dL Albumin 4.0 (3.2-5.2) g/dL Globulin 2.9 (2-4) g/dL Albumin/Globulin Ratio 1.4 (1-3) Result Diagrams: 11/20/19 18:26 11/20/19 18:26 Lab Statement: Any lab studies that have been ordered have been reviewed, and results considered in the medical decision making process. - Radiology chest Radiology Interpretation Completed By: ED Physician Summary of Radiographic Findings: no active disease - EKG No standard instances Cardiac Rate: NL EKG Rhythm: Sinus Rhythm Summary of EKG Findings: sinus rhythm Re-Evaluation - Re-Evaluation First Eval Re-Evaluation Time: 19:53 Comment: no improvement with gi cocktail with try toradol Second Eval Re-Evaluation Time: 20:36 Change: Improved Comment: chest pain improved after toradol Chest Pain Course/Dx - Course Course Of Treatment: 29-year-old female presents with chest pain today. States it woke her up out of bed today. She states that it is substernal chest pain. She states that it is sharp in nature. Is worse when she tries to eat something. She denies any nausea or vomiting. She has tried tyenlol and ibuprofen with no relief of the pain. She is a type II diabetic. She denies any recent travel. She is on the depo. She denies any pain or swelling into her calf muscles. States feels like her heart rate is more elevated than normal. She is nonsmoker. Denies any drug use. she denies any family history of blood clots. Her aunt does have a history of cardiac disease. She has history asthma. Has a history of high blood pressure. States that she is in the area because she is in respite for an overdose a couple months ago. On exam has reproducible chest pain. EKG shows sinus rhythm. Troponin is 0. D- dimer negative. heart score 2. no improvement with GI cocktail, chest pain improved with toradol. told continue tyenlol and ibuprofen. told follow up with [facility]. patient understand and agrees with plan. - Chest Pain Differential Diagnosis/HQI/PQRI: Angina, GI Disease, Pulmonary Embolism - Diagnoses Provider Diagnoses: Chest wall pain Discharge ED - Sign-Out/Discharge Documenting (check all that apply): Patient Departure - Discharge Plan Condition: Good Disposition: HOME Patient Education Materials: Chest Wall Pain (ED) Referrals: [facility] [Outside] Additional Instructions: Take ibuprofen or Tylenol every 6 hours as needed for pain Follow up with primary within 5 days Return to ED if develop any new or worsening symptoms - Billing Disposition and Condition Condition: GOOD Disposition: Home - Attestation Statements Provider Attestation: I was available for consult. This patient was seen by the GUILLERMO. The patient was not presented to, seen by, or examined by me. Philippe Maurer MD
[2019-11-20 19:18] LABS: C Reactive Protein 2.08 mg/L (<8.01)
[2019-11-20] MEDS ORDERED: Ketorolac INJ* 30 MG/ML 1 ML VIAL IM ONE (19:51)
[2019-11-20 20:42] VITALS: BP 119/76
== END 2019-11-20 20:39 | disposition home or self-care (01) ==
LOC: ED 18:12
DX: R07.89 Other chest pain (principal); E11.9 Type 2 diabetes mellitus without complications; J45.909 Unspecified asthma, uncomplicated
CPT/HCPCS: 36415; 71046; 80053; 84484; 85025; 85379; 85610; 86140; 93005; 96372; 99283; A9270-GY; J1885

== ENCOUNTER 2019-11-20 22:24 | Emergency (ER) | payer MEDICAID ==
--- NOTE | 2019-11-20 23:37 | ED ---
Psychiatric Complaint - HPI Summary HPI Summary: Patient is a 29 y/o F w/ reported Hx of bipolar disorder and schizophrenia who presents to [facility] with SI. Patient is currently residing at a residential and states that staff would not provide her with her evening medications, which include Depakote and a medication which helps her sleep. She requested staff provide her with her medications but states that they refused. Patient became upset by this, threatened to cut herself with a knife, called police and threatened to kill herself. Patient states that she is currently agitated. She states that she is "done with these people" at her residential and also endorses SI. She claims that in September of 2018, she had overdosed on medications and was in a coma for four days. Patient states that she cuts herself because it "releases my pain". Home medications and allergies are reviewed. - History Of Current Complaint Time Seen by Provider: 11/20/19 22:40 Hx Obtained From: Patient Onset/Duration: Still Present Timing: Constant Character: Angry - agitated Aggravating Factor(s): Recent Stress Associated Signs And Symptoms: Positive: Hostile Has Suicidal: Reports: Thoughts, With A Plan, Demonstrates Gesture, Has Prior Attempt(s) - Allergies/Home Medications Allergies/Adverse Reactions: Allergies Allergy/AdvReac Type Severity Reaction Status Date / Time No Known Allergies Allergy Verified 11/20/19 18:18 Home Medications: Home Medications Benztropine TAB* [Cogentin TAB*] 1 mg PO BID 11/21/19 [History Confirmed ] Chlorpromazine HCl [Chlorpromazine 100 MG] 100 mg PO BID 11/21/19 [History Confirmed 11/21/19] Ibuprofen TAB* [Motrin TAB* 400 MG] 11/21/19 [History] Metformin HCl 500 mg PO 11/21/19 [History] Metoprolol Succinate 25 mg PO BID 11/21/19 [History Confirmed 11/21/19] Mirtazapine TAB* 15 mg PO QPM 11/21/19 [History Confirmed 11/21/19] Mirtazapine TAB* [Remeron TAB*] 30 mg PO BEDTIME 11/21/19 [History Confirmed 08/02] Nitrofurantoin Monohyd/M-Cryst 100 mg PO BID 11/21/19 [History Confirmed ] Tylenol TAB* 652 mg PO Q6HR PRN 11/21/19 [History Confirmed 11/21/19] Valproic Acid 125 mg PO BID 11/21/19 [History Confirmed 11/21/19] PMH/Surg Hx/FS Hx/Imm Hx Endocrine/Hematology History: Reports: Hx Diabetes Denies: Hx Anticoagulant Therapy Respiratory History: Reports: Hx Asthma Psychiatric History: Reports: Hx Schizophrenia, Hx Bipolar Disorder, Hx Suicide Attempt Infectious Disease History: No Infectious Disease History: Denies: Traveled Outside the [place] in Last 30 Days - Family History Known Family History: Positive: Blood Disorder - no FMHx of blood clots - Social History Alcohol Use: None Substance Use Type: Reports: None Smoking Status (MU): Never Smoked Tobacco Review of Systems Negative: Fever - on vitals, temp is 98 F Psychological: Other - positive - agitated Positive: Depressed All Other Systems Reviewed And Are Negative: Yes Physical Exam - Summary Physical Exam Summary: General: Well-developed, obese female. No acute distress. HEENT: Normocephalic, Atraumatic. Eyes: Conjuctiva normal, PERRL. Oropharynx: Clear, mucous membranes moist, (-) exudates. Neck: Soft, FROM, (-) lymphadenopathy, (-) thyromegaly, (-) JVD. Cardiovascular: Normal sinus rhythm, (-) murmur. Lungs: Clear to auscultation bilaterally (-) wheezes, (-) rales, (-) rhonchi. Abdomen: Soft, non-tender, non-distended, (-) organomegaly, normal bowel sounds. Back: (-) CVA tenderness Extremities: No edema. Skin: Warm, dry, (-) rash. Neuro: Alert and oriented x3, no focal deficits. Psychiatric: Moderately agitated. Triage Information Reviewed: Yes Vital Signs On Initial Exam: Initial Vitals Temp Pulse Resp BP Pulse Ox 98 F 100 19 103/72 95 11/20/19 22:53 11/20/19 22:53 11/20/19 22:53 11/20/19 22:53 11/20/19 22:53 Vital Signs Reviewed: Yes Procedures - Sedation Patient Received Moderate/Deep Sedation with Procedure: No Diagnostics - Vital Signs Vital Signs Temp Pulse Resp BP Pulse Ox 11/20/19 22:53 98 F 100 19 103/72 95 - Laboratory Lab Statement: Any lab studies that have been ordered have been reviewed, and results considered in the medical decision making process. Re-Evaluation - Re-Evaluation First Eval Re-Evaluation Time: 01:18 Comment: There is no list of medications for the patient. Patient is unsure of all the medications she takes in the evening. Second Eval Re-Evaluation Time: 02:46 Comment: Medications list was obtained for patient. Third Eval Re-Evaluation Time: 03:21 Comment: Patient's case worker in ED, she administered patient's home medications. Course/Dx - Course Course Of Treatment: 29 year old female presents with police after she called them and said she was going to kill herself. she states she is at a respite home. was at the ed earlier with chest pain. upon arriving back to the home they would not give her evening meds to her. she became very angry and started leaving and called meat and seafood clerk saying she was going to kill herself. patient does not know her meds for me to order. exam shows agitation. workup essentially wnl. home appliance technician arrives and talks to patient. patient seen by mental health test engine evaluator. pat discharged to respite home wiht employee communications manager. will receive meds at home. - Differential Dx/Clinical Impression Provider Diagnosis: Schizophrenia - Physician Notifications Discussed Care Of Patient With: Mukesh Méndez Time Discussed With Above Provider: 03:11 Instructed by Provider To: Other - Patient's case was reviewed by Dr. Méndez, patient to be discharged. Discharge ED - Sign-Out/Discharge Documenting (check all that apply): Patient Departure - discharge - Discharge Plan Condition: Stable Disposition: HOME Referrals: No Primary Care Phys,NOPCP [Primary Care Provider] - Additional Instructions: as tolerated. ok to give evening medicines late tonight. - Billing Disposition and Condition Condition: STABLE Disposition: Home - Attestation Statements Document Initiated by Scribe: Yes Documenting Scribe: BIRGIT CURTIS Provider For Whom Hay is Documenting (Include Credential): LEONEL CAREY MD Scribe Attestation: BIRGIT Naylor scribed for LEONEL CAREY MD on 11/21/19 at 0604. Scribe Documentation Reviewed: Yes Provider Attestation: The documentation as recorded by the BIRGIT rodríguez accurately reflects the service I personally performed and the decisions made by me, LEONEL CAREY MD Status of Scribe Document: Viewed
[2019-11-20 23:38] LABS: Urine Appearance Cloudy; Urine Bilirubin Negative (Negative); Urine Blood Negative (Negative); Urine Color Yellow; Urine Glucose Negative (Negative); Urine Ketones Negative (Negative); Urine Nitrite Negative (Negative); Urine Protein Negative (Negative); Urine Specific Gravity 1.014 (1.010-1.030); Urine Urobilinogen Negative (Negative)
[2019-11-20 23:41] LABS: Urine Bacteria Absent (Absent); Urine Red Blood Cell 1+(3-5/hpf) (Absent); Urine Squamous Epithelial Cell Present (Absent); Urine White Blood Cell 3+(>20/hpf) (Absent)
[2019-11-20 23:53] LABS: Urine Benzodiazepine Screen None Detected (None Detect); Urine Opiates Screen None Detected (None Detect)
[2019-11-20 23:57] LABS: Acetaminophen < 15 mcg/mL; Alcohol < 10 mg/dL (<10); Salicylate < 2.50 mg/dL (<30)
[2019-11-21 00:12] LABS: TSH (Thyroid Stimulating Horm) 4.85 mcIU/mL (0.34-5.60)
[2019-11-21 03:28] VITALS: BP 126/79
== END 2019-11-21 03:26 | disposition home or self-care (01) ==
LOC: ED 22:24
DX: F20.9 Schizophrenia, unspecified (principal); E11.9 Type 2 diabetes mellitus without complications; F31.9 Bipolar disorder, unspecified; Z79.899 Other long term (current) drug therapy
CPT/HCPCS: 36415; 80307; 80320; 80329; 81003; 81015; 84443; 87086; 99284; G0480

== ENCOUNTER 2019-11-22 09:56 | Inpatient (IN) | payer MEDICAID ==
[2019-11-22] MEDS ORDERED: LORazepam INJ* 2 MG/ML 1 ML VIAL IM ONE (10:12)
[2019-11-22] MEDS ORDERED: Haloperidol INJ IV/IM* 5 MG/ML AMP IM ONE (10:12)
[2019-11-22] MEDS ORDERED: diPHENhydraMINE IV* 50 MG/ML 1 ml VIAL (BENADRYL) IM ONE (10:12)
--- NOTE | 2019-11-22 10:23 | ED ---
Psychiatric Complaint - HPI Summary HPI Summary: Patient is a 29 y/o F presenting to [facility] via EMS for SI. Patient was here two days ago for similar Sx. She is noted to be on Depakote per medical records. She is uncooperative with HPI and exam. Patient is aggressive and threatening towards staff. Level 5 caveat secondary to uncooperative nature. - History Of Current Complaint Time Seen by Provider: 11/22/19 10:08 Hx Obtained From: EMS, Medical Records Hx From Patient Unobtainable Due To: Other - uncooperative at this time Onset/Duration: Still Present Timing: Constant Character: Depressed, Angry, Frustrated Has Suicidal: Reports: Thoughts - Allergies/Home Medications Allergies/Adverse Reactions: Allergies Allergy/AdvReac Type Severity Reaction Status Date / Time No Known Allergies Allergy Verified 11/22/19 10:30 Home Medications: Home Medications Metoprolol Succinate XL TAB* [Toprol XL TAB*] 25 mg PO BID 11/22/19 [History Confirmed 11/22/19] Valproic Acid CAP(*) [Depakene CAP(*)] 1,000 mg PO BID 11/22/19 [History Confirmed 11/22/19] PMH/Surg Hx/FS Hx/Imm Hx Endocrine/Hematology History: Reports: Hx Diabetes Denies: Hx Anticoagulant Therapy Respiratory History: Reports: Hx Asthma Psychiatric History: Reports: Hx Depression, Hx Schizophrenia, Hx Bipolar Disorder, Hx Suicide Attempt Denies: Hx Eating Disorder, Hx Post Traumatic Stress Disorder - Family History Known Family History: Positive: Blood Disorder - no FMHx of blood clots - Social History Alcohol Use: None Substance Use Type: Reports: None Substance Use Comment - Amount & Last Used: Pt reports she was a heavy drinker until court ordered to stop Smoking Status (MU): Never Smoked Tobacco Review of Systems - ROS Summary Review of Systems Summary: Level 5 caveat secondary to uncooperative nature. Psychological: Other - positive - SI All Other Systems Reviewed And Are Negative: No - Comments Additional Review of Systems Comments: Level 5 caveat secondary to uncooperative nature. Physical Exam - Summary Physical Exam Summary: General: Well appearing, no distress, obese Cardiovascular: Skin is well perfused Pulmonary: No respiratory distress, no tachypnea Abdomen: Non-distended Skin: Warm, pink, dry Psych: Uncooperative Neuro: A&Ox3 Triage Information Reviewed: Yes Vital Signs Reviewed: Yes Procedures - Sedation Patient Received Moderate/Deep Sedation with Procedure: No Diagnostics - Laboratory Result Diagrams: 11/22/19 10:18 11/22/19 10:18 Lab Statement: Any lab studies that have been ordered have been reviewed, and results considered in the medical decision making process. Re-Evaluation - Re-Evaluation First Eval Re-Evaluation Time: 10:22 Comment: Patient was agreeable with medications administration. Course/Dx - Course Course Of Treatment: Ms. Bailey was quite uncooperative and combative when she arrived. She agreed to take some medication to help her calm down and this did indeed help after she received IM Haldol, Ativan and Benadryl. Her labs returned unremarkable including a Depakote level and she underwent a mental health eval here in the department. They offered her voluntary admission and she accepted. - Differential Dx/Clinical Impression Provider Diagnosis: Mood disorder - Physician Notifications Discussed Care Of Patient With: Best Norman Time Discussed With Above Provider: 14:12 Instructed by Provider To: Other - Patient's case was reviewed by Dr. Norman, patient will be admitted to [facility] psych. Discharge ED - Sign-Out/Discharge Documenting (check all that apply): Patient Departure - admit All imaging exams completed and their final reports reviewed: No - Discharge Plan Condition: Stable Disposition: PSYCHIATRIC FACILITY-[facility] - Billing Disposition and Condition Condition: STABLE Disposition: Psychiatric Facility [facility] - Attestation Statements Document Initiated by Hay: Yes Documenting Scribe: BIRGIT CURTIS Provider For Whom Hay is Documenting (Include Credential): SAGE ARRIETA MD Scribe Attestation: BIRGIT Naylor, scribed for SAGE ARRIETA MD on 11/22/19 at 1516. Scribe Documentation Reviewed: Yes Provider Attestation: The documentation as recorded by the BIRGIT rodríguez accurately reflects the service I personally performed and the decisions made by me, SAGE ARRIETA MD Status of Scribe Document: Viewed
[2019-11-22 10:39] LABS: ABS Lymphocytes 1.8 10^3/ul (1.0-4.8); ABS Monocytes 0.6 10^3/ul (0-0.8); ABS Neutrophils 2.4 10^3/ul (1.5-7.7); Hematocrit 39 % (35-47); Hemoglobin 13.3 g/dL (12.0-16.0); Lymphocyte % 38.1 %; Mean Corpuscular HGB Conc 34 g/dL (31-36); Mean Corpuscular Hemoglobin 30 pg (27-31); Mean Corpuscular Volume 89 fL (80-97); Mean Platelet Volume 7.9 fL (7.4-10.4); Nucleated Red Blood Cells % 0.1; Platelet Count 157 10^3/uL (150-450); Red Blood Count 4.41 10^6 /uL (3.70-4.87); Red Cell Distribution Width 13 % (10-15); White Blood Count 4.7 10^3/uL (3.5-10.8)
[2019-11-22 11:00] LABS: ALT 24 U/L (7-52); AST 22 U/L (13-39); Albumin 3.9 g/dL (3.2-5.2); Albumin/Globulin Ratio 1.2 (1-3); Alkaline Phosphatase 54 U/L (34-104); Blood Urea Nitrogen 29 mg/dL (6-24); CO2 Carbon Dioxide 19 mmol/L (22-32); Calcium 9.2 mg/dL (8.6-10.3); EGFR African American 66.4 (>60); EGFR Non-African American 54.9 (>60); Globulin 3.3 g/dL (2-4); Glucose 99 mg/dL (70-100); Potassium 4.6 mmol/L (3.5-5.0); Sodium 141 mmol/L (135-145); Total Protein 7.2 g/dL (6.4-8.9)
[2019-11-22 11:01] LABS: Anion Gap 9 mmol/L (2-11); Chloride 113 mmol/L (101-111)
[2019-11-22 11:14] LABS: Acetaminophen < 15 mcg/mL; Alcohol < 10 mg/dL (<10); Salicylate < 2.50 mg/dL (<30)
[2019-11-22 11:27] LABS: TSH (Thyroid Stimulating Horm) 1.73 mcIU/mL (0.34-5.60)
[2019-11-22 15:42] LABS: Urine Appearance Cloudy; Urine Bilirubin Negative (Negative); Urine Blood Negative (Negative); Urine Color Yellow; Urine Glucose Negative (Negative); Urine Ketones Trace (Negative); Urine Nitrite Negative (Negative); Urine Protein Negative (Negative); Urine Specific Gravity 1.015 (1.010-1.030); Urine Urobilinogen Negative (Negative)
[2019-11-22 15:43] LABS: Urine Bacteria Absent (Absent); Urine Red Blood Cell Trace(0-2/hpf) (Absent); Urine Squamous Epithelial Cell Present (Absent); Urine White Blood Cell 1+(6-10/hpf) (Absent)
[2019-11-22 15:51] LABS: Urine Benzodiazepine Screen None Detected (None Detect); Urine Opiates Screen None Detected (None Detect)
--- NOTE | 2019-11-22 20:19 | HP ---
H&P (Free Text) History and Physical: IDENTIFICATION: Kimberley Bailey is a 29-year-old single, childless, diabled woman. She has been living in respite at the [facility] on [address]. CHIEF COMPLAINT: The other night I came here to the hospital for chest pain, on . When I went back to [facility], they did not give me my meds [Depakote, an antibiotic for UTI] because I returned too late. I got upset about it and went back to the hospital. HISTORY OF THE PRESENT ILLNESS: It is reported by the ED physician that on that second ED visit, the patient had told [facility] staff she was suicidal. She reports having returned to [facility] after that second ED presentation. She reports having received Depakote this morning from [facility] staff. Reports she stated to staff at [facility] and to police who were called there that she wanted to kill herself by shooting herself with a gun or overdosing. Reports she is doing better since no longer having contact with mother or aunt Addie, who are both in [place], [place]. Reports mood has been not very good, because I get agitated very quickly. Reports she did not sleep last night or the night before, agrees that lack of sleep can lead to agitation, reports lack of sleep relates to not having CPAP machine. Reports she likes to drink beer, and was drinking beer when she got out of the [place] skilled [facility] 06.24.19. Reports very low self-esteem. Energy level not very good, low. Reports SI comes from mother having been disrespectful of her for the past 6 months, for example breaking dishes in anger and complaining that patient and mothers boyfriend don t help her [do the dishes?]. In response to inquiry re manic symptoms, that sometimes she walks down the street in the dark. Reports, however, that she has bipolar disorder. Denies ever having had hallucinations or paranoia. Reports having obsessions with order, but then states she does not want to go out in the dark because she might be sprayed by a skunk. When seeking clarification of this non-sequitur response, she does say that she will refold clothes because she has to have everything neat. Denies ever anorexia or bulimia or binging. Denies ever any experience of psychological trauma or PTSD symptoms. Denies it again after asking if in any of her difficulties with parents and [facility] programs and so on she has had any experience of trauma. PAST PSYCHIATRIC HISTORY: Reports she was discharged from [facility] in October after a 9 day treatment for reported SI. Reports 5 or [address] [facility] will not keep her if she presents to their ED because they say Im rude to them and Im not rude to them. Kimberley reports she receives care at [facility] at [address]. Reports she sees Dr Gonzáles there. Reports that Kang Elizabeth is her nurse outreach case manager/ counselor. FAMILY HISTORY: Patient does not know of any family member with a psychiatric illness. SUBSTANCE ABUSE HISTORY: Patient agrees that a release and technical records clerk ordered her not to consume alcohol because they say I get mean on it and I even mix it with my psych meds too. Reports she will drink an entire 6-pack of wine coolers, not more than that. Denies ever having smoked marijuana. Denies ever having abused any illicit substances. Denies smoking tobacco. PAST MEDICAL HISTORY: Carpal tunnel syndrome in both hands, both operated on. Corrective surgery for esotropia. 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 (GFR 54.9 and Cr 1.16 on admission). Denies any other medical issues. HOME MEDICATIONS: Benztropine TAB* [Cogentin TAB*] 1 mg PO BID 11/21/19 [History Confirmed ] Chlorpromazine HCl [Chlorpromazine 100 MG] 100 mg PO BEDTIME 11/21/19 [History Confirmed 11/22/19] Metformin HCl 500 mg PO DAILY 11/21/19 [History Confirmed 11/22/19] Metoprolol Succinate XL TAB* [Toprol XL TAB*] 25 mg PO BID 11/22/19 [History Confirmed 11/22/19] Valproic Acid CAP(*) [Depakene CAP(*)] 1,000 mg PO BID 11/22/19 [History Confirmed 11/22/19] Proair inhaler mirtazapine ODT 15 mg HS mirtazapine 30 mg HS ibuprofen 400 mg q4h ALLERGIES: Benzodiazepines Allergy (Verified 11/22/19 16:45) Dizziness "don't ever give me benzos because I have such a bad reaction that I always fall back and hit my head" lithium Allergy (Verified 11/22/19 16:45) See Comment "killed 45% of my kidneys" PHYSICAL COMPLAINTS/ROS: Reports burning on urination. Denies any chest pain or any pain elsewhere in her body, shortness of breath, tachycardia, nausea, vomiting, or other physical complaint aside from burning on urination. PHYSICAL EXAMINATION: Declines a physical exam, but reports she wants to know if her antibiotic is working against her UTI. Complete physical examination on 11.20.19 in the ED was documented as entirely normal aside from some white on mouth but no thrush noted on mouth. EKG showed normal sinus rhythm and troponin was 0, and chest pain improved with Toradol. ADMISSION LABORATORY VALUES: Laboratory Tests 11/22/19 11/22/19 11/22/19 10:18 10:18 15:00 WBC 4.7 RBC 4.41 Hgb 13.3 Hct 39 MCV 89 MCH 30 MCHC 34 RDW 13 Plt Count 157 MPV 7.9 Neut % (Auto) 49.7 Lymph % (Auto) 38.1 Norton % (Auto) 11.9 Eos % (Auto) 0.0 Baso % (Auto) 0.3 Absolute Neuts (auto) 2.4 Absolute Lymphs (auto) 1.8 Absolute Monos (auto) 0.6 Absolute Eos (auto) 0.0 Absolute Basos (auto) 0.0 Absolute Nucleated RBC 0.0 Nucleated RBC % 0.1 Sodium 141 Potassium 4.6 Chloride 113 H Carbon Dioxide 19 L Anion Gap 9 BUN 29 H Creatinine 1.16 H Est GFR ( Amer) 66.4 Est GFR (Non-Af Amer) 54.9 BUN/Creatinine Ratio 25.0 H Glucose 99 Calcium 9.2 Total Bilirubin 0.20 AST 22 ALT 24 Alkaline Phosphatase 54 Total Protein 7.2 Albumin 3.9 Globulin 3.3 Albumin/Globulin Ratio 1.2 TSH 1.73 Urine Color Yellow Urine Appearance Cloudy Urine pH 5.0 Ur Specific Upperco 1.015 Urine Protein Negative Urine Ketones Trace A Urine Blood Negative Urine Nitrate Negative Urine Bilirubin Negative Urine Urobilinogen Negative Ur Leukocyte Esterase 1+ A Urine WBC (Auto) 1+(6-10/hpf) A Urine RBC (Auto) Trace(0-2/hpf) Ur Squamous Epith Cells Present A Urine Bacteria Absent Urine Glucose Negative Salicylates < 2.50 Urine Opiates Screen Acetaminophen < 15 Ur Barbiturates Screen Valproic Acid 87.0 Ur Phencyclidine Scrn Ur Amphetamines Screen U Benzodiazepines Scrn Urine Cocaine Screen U Cannabinoids Screen Serum Alcohol < 10 11/22/19 15:00 WBC RBC Hgb Hct MCV MCH MCHC RDW Plt Count MPV Neut % (Auto) Lymph % (Auto) Norton % (Auto) Eos % (Auto) Baso % (Auto) Absolute Neuts (auto) Absolute Lymphs (auto) Absolute Monos (auto) Absolute Eos (auto) Absolute Basos (auto) Absolute Nucleated RBC Nucleated RBC % Sodium Potassium Chloride Carbon Dioxide Anion Gap BUN Creatinine Est GFR ( Amer) Est GFR (Non-Af Amer) BUN/Creatinine Ratio Glucose Calcium Total Bilirubin AST ALT Alkaline Phosphatase Total Protein Albumin Globulin Albumin/Globulin Ratio TSH Urine Color Urine Appearance Urine pH Ur Specific Upperco Urine Protein Urine Ketones Urine Blood Urine Nitrate Urine Bilirubin Urine Urobilinogen Ur Leukocyte Esterase Urine WBC (Auto) Urine RBC (Auto) Ur Squamous Epith Cells Urine Bacteria Urine Glucose Salicylates Urine Opiates Screen None detected Acetaminophen Ur Barbiturates Screen None detected Valproic Acid Ur Phencyclidine Scrn None detected Ur Amphetamines Screen None detected U Benzodiazepines Scrn None detected Urine Cocaine Screen None detected U Cannabinoids Screen None detected Serum Alcohol SOCIAL HISTORY: Born in [place], [place]. Reports she knows of no gestational or complications. Reports delays in walking and talking. 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 Agrees with report that she has an IQ of 70. Patient reports particular difficulties with reading. Denies having brothers and sisters. Reports having been in [place] [employer] from 2000 to 2019. Reports having been in alternating short term custody of either mother or father or [employer] programs throughout her childhood. Understands her MSE is working on placement into an OPWDD home, which she agrees to. Reports because of overdose in September of last year she (and everybody else) feels she is unsafe living on her own. Denies having any correction plan. MENTAL STATUS EXAMINATION: Average grooming and hygiene. No motor abnormalities. Regular rate, rhythm and volume of speech. Thought process linear and goal-oriented, though fairly concrete. Mood its OK. Affect fairly calm. Poor insight/judgment, and making poor decisions out of frustration. Good impulse control through this interview, but poor in some settings. PSYCHIATRIC DIAGNOSES: Intellectual disability. Per history, bipolar disorder, though patients current report of history of josé is non-supportive of the diagnosis. Patient denies any history of psychosis, but record indicates also past diagnosis of schizophrenia. Rule out schizoaffective disorder, bipolar type. Rule-out alcohol use disorder. ASSESSMENT AND PLAN: Teresa has been admitted to this locked psychiatric unit out of concern for her safety following her report of suicidal intent and plan. She reports a history of treatment for bipolar disorder and learning disability. She reports having difficulties on some psychiatric units such that they will not admit her. Plan is for stabilization on this unit and following that transer to an OPWDD residence. She reports a difficult childhood with shifting custody between parents and detention settings. Strengths include a cooperative demeanor and being forthcoming in her reports. She will be encouraged to make use of the therapeutic milieu and groups. She is on 15 minute checks for safety. She will be continued for now on her outpatient medication regimen. She is concerned about a UTI that she feels is not getting better with antibiotics, so this will be assessed further.
[2019-11-22] MEDS ORDERED: Valproic Acid CAP(*) 250 MG PO SCH (21:00)
[2019-11-22] MEDS: Benztropine TAB* 1 MG PO SCH ×2 (22:15→23:12)
[2019-11-22] MEDS: Metoprolol Succinate XL TAB* 25 MG PO SCH (22:16)
[2019-11-22] MEDS: Mirtazapine TAB* 15 MG PO SCH (22:16)
[2019-11-22] MEDS: chlorproMAZINE TAB* 100 MG PO SCH (22:16)
[2019-11-22] MEDS: MIRTAZAPINE 15 MG PO SCH (22:29)
[2019-11-22] MEDS ORDERED: Divalproex Sprinkle CAP* 125 MG PO SCH (23:00)
[2019-11-23] MEDS: Benztropine TAB* 1 MG PO SCH ×2 (08:36→20:40)
[2019-11-23] MEDS: metFORMIN* 500 MG TAB PO SCH (08:36)
[2019-11-23] MEDS: chlorproMAZINE TAB* 100 MG PO PRN ×2 (08:36→15:46)
[2019-11-23] MEDS: Metoprolol Succinate XL TAB* 25 MG PO SCH ×2 (08:36→20:40)
[2019-11-23] MEDS: DIVALPROEX SPRINKLE 125 MG PO SCH ×2 (08:57→21:35)
[2019-11-23] MEDS ORDERED: OLANzapine TAB*ODT* 5 MG ONE (17:53)
[2019-11-23] MEDS ORDERED: OLANzapine TAB*ODT* 10 MG TAB ONE (17:53)
[2019-11-23] MEDS ORDERED: OLANzapine TAB*ODT* 5 MG PO ONE (18:00)
[2019-11-23] MEDS ORDERED: chlorproMAZINE INJ* 25 MG/ML 2 ML (50 MG) ONE (20:35)
[2019-11-23] MEDS ORDERED: diPHENhydraMINE IV* 50 MG/ML 1 ml VIAL (BENADRYL) ONE (20:35)
[2019-11-23] MEDS: Mirtazapine TAB* 15 MG PO SCH (20:40)
[2019-11-23] MEDS: chlorproMAZINE TAB* 100 MG PO SCH (20:40)
[2019-11-23] MEDS ORDERED: diPHENhydraMINE IV* 50 MG/ML 1 ml VIAL (BENADRYL) IM ONE (21:00)
[2019-11-23] MEDS ORDERED: chlorproMAZINE INJ* 25 MG/ML 2 ML (50 MG) IM ONE (21:00)
[2019-11-23] MEDS: MIRTAZAPINE 15 MG PO SCH (21:35)
[2019-11-24] MEDS: Benztropine TAB* 1 MG PO SCH ×2 (10:29→22:02)
[2019-11-24] MEDS: DIVALPROEX SPRINKLE 125 MG PO SCH ×2 (10:29→21:57)
[2019-11-24] MEDS: metFORMIN* 500 MG TAB PO SCH (10:29)
[2019-11-24] MEDS: Metoprolol Succinate XL TAB* 25 MG PO SCH ×2 (10:29→22:02)
[2019-11-24] MEDS: Haloperidol TAB* 5 MG PO PRN ×2 (12:13→23:19)
[2019-11-24] MEDS: Acetaminophen TAB* 325 MG PO PRN ×2 (13:26→18:13)
[2019-11-24] MEDS: Ibuprofen TAB* 400 MG PO PRN ×2 (13:26→18:12)
--- NOTE | 2019-11-24 18:59 | PN ---
Subjective - Subjective Date of Service: 11/24/19 Service Type: [id number] Hosp care 15 min low complexity Subjective: Complains of back pain, requests heating pack. Reports having slept all day today, but expects she will be able to sleep tonight. REports she wants her clothes back and wants her shower curtain hung up. Denies any thoughts about harming herself or anyone else. Monday evening, patient had been pacing the unit stating she wanted someone to kill her and stating she would harm others. She was threatening toward others. She hit the back of her head against a wall, but denies any other SIB during her agitation. She was offered and took prn medications including Zyprexa Zydis 15 mg, propranolo 20 mg, chlorpromazine 100 mg. She was administered IM chlorpromazine 100 mg and diphenhydramine 50 mg when she refused po medications and was not deescalating her threatening behavior. Consideration was given to giving an additional IM of ziprasidone 20 mg if she did not calm down from her threatening presentation. Eventually she regained sufficient behavioral control not to need that. Consideration was given to adding Tegretol after phone consultation with Dr Norman. Potential drug interactions with Tegretol and the likelihood that she is currrently on Depakote due to failure of Tegretol to benefit her adequately informed my decision not to make this medication change during my time working with her, though further information from previous care providers about her level of functioning while on Tegretol might indicate that adding it to her regiman may be helpful. I did replace prn's of 100 mg chlorpromazine with 5 mg haloperidol after she told me she has not had muscle stiffness while taking haloperidol and it has been helpful. She and I also spoke last evening about implementing strategies to displace impulses to harm self or others into other motor activities that do not represent any intent to harm, such as jumping jacks, as more helpful than punching or hitting anything. We also discussed the use of stress balls, tearing paper, etc to displace aggressive energy. Objective - General Observations Appearance: Disheveled Appears Stated Age: Yes Stature: Overweight Posture: Slumped Eye Contact: Intermittent Behavior/Activity: Peculiar - Interaction Observations Attitude Towards Examiner: Cooperative, Confused Stated Mood: Euthymic - "OK" Affect: Restricted Speech Pattern/Tone: Clear, Appropriate, Normal Volume Thought Process: Coherent, Goal Directed, Tobias Perception: WNL Thought Content: WNL Thought Process: Lethality: Passive Wish Hallucination Type: None Delusion Type: None - Cognitive Function Orientation: Person, Time, Situation - [facility] Level of Consciousness: Awake, Alert, Appropriate Cognition: Impaired Cognition - chronic condition, Impaired Orientation, Impaired Ability to Abstract, Impaired Fund of Knowledge, Impaired Reading, Impaired Writing, Impaired Calculation Ability Estimated Intelligence: Borderline Range Insight: Mostly Blames Others for Problems Judgment Within Normal Limits: No Ability to Make Reasonable Decisions: Serverely Impaired - Medication Compliance Cooperative with Inpatient Medication Regimen: Partial - Group Participation Participates in Group Activities: No Assessment - Assessment Merits Inpatient Hospitalization: For Immediate Safety, For Stabilization, For Ongoing Evaluation, Pending Safe DC Plan Clinical Impression: Teresa has been admitted to this locked psychiatric unit out of concern for her safety following her report of suicidal intent and plan. She reports a history of treatment for bipolar disorder and learning disability. She reports having difficulties on some psychiatric units such that they will not admit her. Plan is for stabilization on this unit and following that transer to an [facility] residence. She reports a difficult childhood with shifting custody between parents and halfway settings. Strengths include a cooperative demeanor and being forthcoming in her reports. She will be encouraged to make use of the therapeutic milieu and groups. She is on 15 minute checks for safety. She will be continued for now on her outpatient medication regimen. She is concerned about a UTI that she feels is not getting better with antibiotics, so this will be assessed further. Microbiology 11/22/19 15:00 Urine Culture - Final Urine Final report is no growth of clinically significant organisms. Vital Signs - Most Recent Temp Pulse Resp BP Pulse Ox 100.2 F 89 17 115/71 96 11/22/19 16:01 11/22/19 22:08 11/24/19 18:04 11/22/19 22:08 11/22/19 16:01 Plan - Plan Treatment Plan: Name: MICHAEL KELLER Birthdate: 1990 [id number] Continue current medications. Continue to monitor for safety. Discharge plan is for transfer to an [facility] facility for extended care. Staff will provide patient with hot packs for complaint of back pain. Recommend reassessment of complaint of burning on urination by weekday treatment team in light of negative urine culture result. Medications: Current Medications Acetaminophen (Tylenol Tab*) 650 mg PO Q4H PRN PRN Reason: for pain; or Temp >101 F Last Admin: 11/24/19 18:13 Dose: 650 mg Al Hydrox/Mg Hydrox/Simethicone (Maalox Plus*) 30 ml PO Q4H PRN PRN Reason: INDIGESTION Albuterol (Ventolin Hfa Inhaler*) 1 puff INH Q4H PRN PRN Reason: SOB/WHEEZING Benztropine Mesylate (Cogentin Tab*) 1 mg PO BID [facility] Last Admin: 11/24/19 10:29 Dose: 1 mg Divalproex Sodium (Depakote Sprinkle Cap*) 1,000 mg PO BID [facility] Last Admin: 11/24/19 10:29 Dose: 1,000 mg Haloperidol (Haldol Tab*) 5 mg PO Q6H PRN PRN Reason: AGITATION Last Admin: 11/24/19 12:13 Dose: 5 mg Ibuprofen (Motrin Tab*) 400 mg PO Q4H PRN PRN Reason: PAIN - MODERATE Last Admin: 11/24/19 18:12 Dose: 400 mg Metformin HCl (Glucophage*) 500 mg PO DAILY [facility] Last Admin: 11/24/19 10:29 Dose: 500 mg Metoprolol Succinate (Toprol Xl Tab*) 25 mg PO BID [facility] Last Admin: 11/24/19 10:29 Dose: 25 mg Mirtazapine (Remeron Tab*) 30 mg PO BEDTIME [facility] Last Admin: 11/23/19 20:40 Dose: 30 mg Pto: Nf Mirtazapine (15 Mg Odt) 1 admin PO BEDTIME [facility] Last Admin: 11/23/19 21:35 Dose: 1 admin - Discharge Plan Discharge Plan: Consider Longer Term Tx
[2019-11-24] MEDS: Mirtazapine TAB* 15 MG PO SCH (21:56)
[2019-11-24] MEDS: MIRTAZAPINE 15 MG PO SCH (22:05)
[2019-11-25] MEDS: Benztropine TAB* 1 MG PO SCH (08:23)
[2019-11-25] MEDS: Haloperidol TAB* 5 MG PO PRN (08:23)
[2019-11-25] MEDS: metFORMIN* 500 MG TAB PO SCH (08:23)
[2019-11-25] MEDS: Metoprolol Succinate XL TAB* 25 MG PO SCH (08:23)
[2019-11-25] MEDS: DIVALPROEX SPRINKLE 125 MG PO SCH ×2 (08:24→19:33)
[2019-11-25] MEDS: Ibuprofen TAB* 400 MG PO PRN ×2 (09:25→15:24)
[2019-11-25] MEDS: Acetaminophen TAB* 325 MG PO PRN ×2 (09:25→15:24)
[2019-11-25] MEDS: Lidocaine PATCH 5%* 1 PATCH TRANSDERM SCH (13:06)
--- NOTE | 2019-11-25 16:22 | PN ---
Subjective - Subjective Date of Service: 11/25/19 Service Type: [id number] Hosp care 15 min low complexity Subjective: The patient is seen along with AMBROCIO Powers for our initial meeting. Although Teresa was reported to have been combative and agitated over the weekend, today she is mostly cooperative, reporting only fatigue and back pain as complaints. She denies SI or HI and states her awareness that her hospice care consultant in [place] is working on finding her new placement, which she is agreeable with. Teresa complains a little about not getting along with her mother, who she says bipolar disorder. The patient acknowledges having bipolar disorder herself and having had a significant suicidal overdose in September, leading to prolonged medical and psychiatric inpatient care at [facility] in [place], [place]. Thereafter she notes having brief 9.39 hospitalizations at [facility] in [place] and [facility] in [place]. She is requesting a lidocaine patch for back pain. Objective - General Observations Appearance: Unkempt Appears Stated Age: Yes Stature: Overweight Posture: Slumped Eye Contact: Intermittent Behavior/Activity: WNL - Interaction Observations Attitude Towards Examiner: Cooperative Stated Mood: Dysphoric Affect: Restricted Speech Pattern/Tone: Clear Thought Process: Coherent Thought Content: Depressive Hallucination Type: None Delusion Type: None - Cognitive Function Orientation: A&O x 4 Level of Consciousness: Awake Cognition: WNL Estimated Intelligence: MR Range Insight: WNL Judgment Within Normal Limits: No Ability to Make Reasonable Decisions: Mildly Impaired - Medication Compliance Cooperative with Inpatient Medication Regimen: Yes - Group Participation Participates in Group Activities: No Assessment - Assessment Merits Inpatient Hospitalization: For Immediate Safety, For Stabilization Inpatient DSM-V Dx: F63.9 Clinical Impression: 29 y.o. single, white female with mild MR (IQ=70) and bipolar disorder, recently discharged from [facility] to the local [facility] Respite program, who arrives for her second ED visit in 3 days due to elopement and aggressive behavior at , along with SI. My understanding is that [facility] is looking for a locked developmental disorders facility for her to stay permanently in. BSU: Problem List - Patient Problems (1) Impulse control disorder Current Visit: Yes Status: Acute Priority: High Code(s): F63.9 - IMPULSE DISORDER, UNSPECIFIED SNOMED Code(s): 35956452 Plan - Plan Treatment Plan: Name: MICHAEL KELLER Birthdate: 1990 [id number] We will treat with olanzapine zydis 10mg PO qhs, Depakote 1000mg PO BID, mirtazapine 30mg PO qhs, propranolol 20mg PO BID and prn hydroxyzine. Await placement in appropriate [facility] facility. Continued Medication Management: Different Medication Medications: Current Medications Acetaminophen (Tylenol Tab*) 650 mg PO Q4H PRN PRN Reason: for pain; or Temp >101 F Last Admin: 11/25/19 15:24 Dose: 650 mg Al Hydrox/Mg Hydrox/Simethicone (Maalox Plus*) 30 ml PO Q4H PRN PRN Reason: INDIGESTION Albuterol (Ventolin Hfa Inhaler*) 1 puff INH Q4H PRN PRN Reason: SOB/WHEEZING Divalproex Sodium (Depakote Sprinkle Cap*) 1,000 mg PO BID [facility] Last Admin: 11/25/19 08:24 Dose: 1,000 mg Haloperidol (Haldol Tab*) 5 mg PO Q6H PRN PRN Reason: AGITATION Last Admin: 11/25/19 08:23 Dose: 5 mg Hydroxyzine HCl (Atarax Tab*) 50 mg PO Q6H PRN PRN Reason: anxiety Ibuprofen (Motrin Tab*) 400 mg PO Q4H PRN PRN Reason: PAIN - MODERATE Last Admin: 11/25/19 15:24 Dose: 400 mg Lidocaine (Lidoderm 5% Patch*) 1 patch TRANSDERM DAILY [facility] Last Admin: 11/25/19 13:06 Dose: 1 patch Metformin HCl (Glucophage*) 500 mg PO DAILY [facility] Last Admin: 11/25/19 08:23 Dose: 500 mg Mirtazapine (Remeron Tab*) 30 mg PO BEDTIME [facility] Last Admin: 11/24/19 21:56 Dose: 30 mg Pto: Nf Mirtazapine (15 Mg Odt) 1 admin PO BEDTIME [facility] Last Admin: 11/24/19 22:05 Dose: 1 admin Olanzapine (Zyprexa *Odt*) 10 mg PO BEDTIME [facility] Pharmacy Profile Note (Lidocaine Patch Remove*) 1 note N/A 2100 [facility] Propranolol HCl (Inderal 20 Mg Tab) 20 mg PO BID [facility] - Discharge Plan Discharge Plan: Inpatient Hospitalization
[2019-11-25] MEDS: Albuterol HFA INHALER* 8 gm MDI INH PRN (17:14)
[2019-11-25] MEDS: hydrOXYzine HCL TAB* 50 MG PO PRN (17:23)
[2019-11-25] MEDS: Mirtazapine TAB* 15 MG PO SCH (19:34)
[2019-11-25] MEDS: MIRTAZAPINE 15 MG PO SCH (19:57)
[2019-11-25] MEDS: Lidocaine Patch REMOVE* 1 NOTE MISC SCH (19:57)
[2019-11-25] MEDS ORDERED: OLANzapine TAB*ODT* 10 MG TAB PO SCH (21:00)
[2019-11-26] MEDS: Acetaminophen TAB* 325 MG PO PRN ×3 (04:20→12:34)
[2019-11-26] MEDS: Ibuprofen TAB* 400 MG PO PRN ×3 (04:20→12:34)
[2019-11-26] MEDS: Hemorrhoidal OINT TOPICAL PRN (05:20)
[2019-11-26] MEDS: Lidocaine PATCH 5%* 1 PATCH TRANSDERM SCH (07:58)
[2019-11-26] MEDS: DIVALPROEX SPRINKLE 125 MG PO SCH ×2 (08:42→19:21)
[2019-11-26] MEDS: metFORMIN* 500 MG TAB PO SCH (08:48)
--- NOTE | 2019-11-26 11:43 | PN ---
Subjective - Subjective Date of Service: 11/26/19 Service Type: [id number] Hosp care 15 min low complexity Subjective: Teresa is seen for follow up along with unit SW Modesta Powers. The patient remains under behavioral control and continues to deny SI and HI. Staff notes that she does well as long as staff remains available and supportive of her requests. She is complaining of foot pains that she associates with diabetes as well as mild swelling in both feet. She is hopeful for discharge to either respite or long-term placement. Objective - General Observations Appearance: Disheveled Appears Stated Age: Yes Stature: Overweight Posture: WNL Eye Contact: Average Behavior/Activity: WNL - Interaction Observations Attitude Towards Examiner: Cooperative Stated Mood: Anxious Affect: Labile Speech Pattern/Tone: Excessive Thought Process: Tangential Perception: WNL Thought Content: WNL Hallucination Type: None Delusion Type: None - Cognitive Function Orientation: A&O x 4 Level of Consciousness: Awake Cognition: WNL Estimated Intelligence: MR Range Insight: WNL Judgment Within Normal Limits: Yes - Medication Compliance Cooperative with Inpatient Medication Regimen: Yes - Group Participation Participates in Group Activities: No Assessment - Assessment Merits Inpatient Hospitalization: For Immediate Safety, For Stabilization Inpatient DSM-V Dx: F63.9 Clinical Impression: 29 y.o. single, white female with mild MR (IQ=70) and bipolar disorder, recently discharged from [facility] to the local [facility]pite program, who arrives for her second ED visit in 3 days due to elopement and aggressive behavior at , along with SI. My understanding is that [facility] is looking for a locked developmental disorders facility for her to stay permanently in. BSU: Problem List - Patient Problems (1) Impulse control disorder Current Visit: Yes Status: Acute Priority: High Code(s): F63.9 - IMPULSE DISORDER, UNSPECIFIED SNOMED Code(s): 37584435 Plan - Plan Treatment Plan: Name: MICHAEL KELLER Birthdate: 1990 [id number] We will treat with olanzapine zydis 10mg PO qhs, Depakote 1000mg PO BID, mirtazapine 30mg PO qhs, propranolol 20mg PO BID and prn hydroxyzine. Add gabapentin 100mg PO TID for diabetic neuropathy. Await placement in appropriate [facility] facility. Continued Medication Management: Different Medication Medications: Current Medications Acetaminophen (Tylenol Tab*) 650 mg PO Q4H PRN PRN Reason: for pain; or Temp >101 F Last Admin: 11/26/19 08:45 Dose: 650 mg Al Hydrox/Mg Hydrox/Simethicone (Maalox Plus*) 30 ml PO Q4H PRN PRN Reason: INDIGESTION Albuterol (Ventolin Hfa Inhaler*) 1 puff INH Q4H PRN PRN Reason: SOB/WHEEZING Last Admin: 11/25/19 17:14 Dose: 1 puff Divalproex Sodium (Depakote Sprinkle Cap*) 1,000 mg PO 0900,[facility] Gabapentin (Neurontin Cap(*)) 100 mg PO 0900,1400,1900 [facility] Haloperidol (Haldol Tab*) 5 mg PO Q6H PRN PRN Reason: AGITATION Last Admin: 11/25/19 08:23 Dose: 5 mg Hydroxyzine HCl (Atarax Tab*) 50 mg PO Q6H PRN PRN Reason: anxiety Last Admin: 11/25/19 17:23 Dose: 50 mg Ibuprofen (Motrin Tab*) 400 mg PO Q4H PRN PRN Reason: PAIN - MODERATE Last Admin: 11/26/19 08:46 Dose: 400 mg Lidocaine (Lidoderm 5% Patch*) 1 patch TRANSDERM DAILY [facility] Last Admin: 11/26/19 07:58 Dose: 1 patch Metformin HCl (Glucophage*) 500 mg PO DAILY [facility] Last Admin: 11/26/19 08:48 Dose: 500 mg Mirtazapine (Remeron Tab*) 30 mg PO [facility] Mirtazapine 5 Mg Odt 1 admin PO [facility] Olanzapine (Zyprexa *Odt*) 10 mg PO [facility] Pharmacy Profile Note (Lidocaine Patch Remove*) 1 note N/A [facility] Last Admin: 11/25/19 19:57 Dose: 1 note Phenyleph/Shark Oil/Min Oil/Petrol (Preparation H*) 1 applic TOPICAL QID PRN PRN Reason: MODERATE PAIN AFTER BM Last Admin: 11/26/19 05:20 Dose: 1 applic Propranolol HCl (Inderal 20 Mg Tab) 20 mg PO 0900,[facility] - Discharge Plan Discharge Plan: Inpatient Hospitalization Lab Results - Lab Results Lab Results: 11/26/19 10:06 POC Glucose (mg/dL) 169 H
[2019-11-26] MEDS: Gabapentin CAP(*) 100 MG PO SCH ×2 (13:20→19:12)
[2019-11-26] MEDS: Albuterol HFA INHALER* 8 gm MDI INH PRN (17:21)
[2019-11-26] MEDS: Mirtazapine TAB* 15 MG PO SCH (19:13)
[2019-11-26] MEDS: OLANzapine TAB*ODT* 10 MG TAB PO SCH (19:14)
[2019-11-26] MEDS: hydrOXYzine HCL TAB* 50 MG PO PRN (19:17)
[2019-11-26] MEDS: MIRTAZAPINE 15 MG PO SCH (19:40)
[2019-11-26] MEDS: Lidocaine Patch REMOVE* 1 NOTE MISC SCH (21:05)
[2019-11-27] MEDS: metFORMIN* 500 MG TAB PO SCH (08:41)
[2019-11-27] MEDS: DIVALPROEX SPRINKLE 125 MG PO SCH ×2 (08:41→18:33)
[2019-11-27] MEDS: Lidocaine PATCH 5%* 1 PATCH TRANSDERM SCH (08:41)
[2019-11-27] MEDS: Gabapentin CAP(*) 100 MG PO SCH ×3 (08:41→18:28)
[2019-11-27 09:03] LABS: HDL Cholesterol 25.6 mg/dL
[2019-11-27] MEDS: Lidocaine Patch REMOVE* 1 NOTE MISC SCH ×2 (10:00→21:34)
[2019-11-27] MEDS: Ibuprofen TAB* 400 MG PO PRN ×2 (11:19→16:20)
[2019-11-27] MEDS: hydrOXYzine HCL TAB* 50 MG PO PRN (13:02)
--- NOTE | 2019-11-27 13:21 | PN ---
Subjective - Subjective Date of Service: 11/27/19 Service Type: [id number] Hosp care 15 min low complexity Subjective: Kimberley is calm and cooperative. She reports that gabapentin has been helpful for her foot pain but this is still bothering her. I understand we have had some contact with the [facility] and that the patient may be discharged to a respite program through [facility] as soon as this Monday (11/29). Chantale is denying SI or HI. Objective - General Observations Appearance: Well Groomed Appears Stated Age: Yes Stature: Overweight Posture: WNL Eye Contact: Average Behavior/Activity: WNL - Interaction Observations Attitude Towards Examiner: Cooperative Stated Mood: Euthymic Affect: Full Speech Pattern/Tone: Clear Thought Process: Coherent Perception: WNL Thought Content: WNL Hallucination Type: None Delusion Type: None - Cognitive Function Orientation: A&O x 4 Level of Consciousness: Awake Cognition: WNL Estimated Intelligence: MR Range Insight: WNL - Medication Compliance Cooperative with Inpatient Medication Regimen: Yes - Group Participation Participates in Group Activities: Yes Assessment - Assessment Merits Inpatient Hospitalization: Consolidate Improvements, Pending Safe DC Plan Inpatient DSM-V Dx: F63.9 Clinical Impression: 29 y.o. single, white female with mild MR (IQ=70) and bipolar disorder, recently discharged from [facility] to the local [facility] Respite program, who arrives for her second ED visit in 3 days due to elopement and aggressive behavior at , along with SI. My understanding is that [facility] is looking for a locked developmental disorders facility for her to stay permanently in. BSU: Problem List - Patient Problems (1) Impulse control disorder Current Visit: Yes Status: Acute Priority: High Code(s): F63.9 - IMPULSE DISORDER, UNSPECIFIED SNOMED Code(s): 76144488 Plan - Plan Treatment Plan: Name: KIMBERLEY KELLER Birthdate: 1990 [id number] The patient is doing well on olanzapine zydis 10mg PO qhs, Depakote 1000mg PO BID, mirtazapine 45mg PO qhs, propranolol 20mg PO BID and prn hydroxyzine. We will increase gabapentin to 200mg PO TID for diabetic neuropathy. Await placement in appropriate [facility] facility. Continued Medication Management: Different Medication Medications: Current Medications Acetaminophen (Tylenol Tab*) 650 mg PO Q4H PRN PRN Reason: for pain; or Temp >101 F Last Admin: 11/26/19 12:34 Dose: 650 mg Al Hydrox/Mg Hydrox/Simethicone (Maalox Plus*) 30 ml PO Q4H PRN PRN Reason: INDIGESTION Albuterol (Ventolin Hfa Inhaler*) 1 puff INH Q4H PRN PRN Reason: SOB/WHEEZING Last Admin: 11/26/19 17:21 Dose: 1 puff Divalproex Sodium (Depakote Sprinkle Cap*) 1,000 mg PO 0900,1900 [facility] Last Admin: 11/27/19 08:41 Dose: 1,000 mg Gabapentin (Neurontin Cap(*)) 200 mg PO 0900,1400,1900 [facility] Haloperidol (Haldol Tab*) 5 mg PO Q6H PRN PRN Reason: AGITATION Last Admin: 11/25/19 08:23 Dose: 5 mg Hydroxyzine HCl (Atarax Tab*) 50 mg PO Q6H PRN PRN Reason: anxiety Last Admin: 11/27/19 13:02 Dose: 50 mg Ibuprofen (Motrin Tab*) 400 mg PO Q4H PRN PRN Reason: PAIN - MODERATE Last Admin: 11/27/19 11:19 Dose: 400 mg Lidocaine (Lidoderm 5% Patch*) 1 patch TRANSDERM DAILY [facility] Last Admin: 11/27/19 08:41 Dose: 1 patch Metformin HCl (Glucophage*) 500 mg PO DAILY [facility] Last Admin: 11/27/19 08:41 Dose: 500 mg Mirtazapine (Remeron Tab*) 30 mg PO 1900 [facility] Last Admin: 11/26/19 19:13 Dose: 30 mg Mirtazapine 15 Mg (Odt) 1 admin PO 1900 [facility] Last Admin: 11/26/19 19:40 Dose: 1 admin Olanzapine (Zyprexa *Odt*) 10 mg PO 1900 [facility] Last Admin: 11/26/19 19:14 Dose: 10 mg Pharmacy Profile Note (Lidocaine Patch Remove*) 1 note N/A 2100 [facility] Last Admin: 11/26/19 21:05 Dose: 1 note Phenyleph/Shark Oil/Min Oil/Petrol (Preparation H*) 1 applic TOPICAL QID PRN PRN Reason: MODERATE PAIN AFTER BM Last Admin: 11/26/19 05:20 Dose: 1 applic Propranolol HCl (Inderal 20 Mg Tab) 20 mg PO 0900,1900 [facility] Last Admin: 11/27/19 08:40 Dose: 20 mg - Discharge Plan Discharge Plan: Inpatient Hospitalization Lab Results - Lab Results Lab Results: 11/26/19 11/26/19 11/27/19 10:06 19:00 08:08 POC Glucose (mg/dL) 169 H 159 H Triglycerides 298 Cholesterol 172 LDL Cholesterol 87 HDL Cholesterol 25.6 11/27/19 11:23 POC Glucose (mg/dL) 125 H Triglycerides Cholesterol LDL Cholesterol HDL Cholesterol
[2019-11-27] MEDS: Lidocaine 4% GEL* 10 GM TUBE TOPICAL PRN (15:50)
[2019-11-27] MEDS: Acetaminophen TAB* 325 MG PO PRN (16:20)
[2019-11-27] MEDS: Mirtazapine TAB* 15 MG PO SCH (18:30)
[2019-11-27] MEDS: OLANzapine TAB*ODT* 10 MG TAB PO SCH (18:39)
[2019-11-27] MEDS: MIRTAZAPINE 15 MG PO SCH (18:39)
[2019-11-27] MEDS: Albuterol HFA INHALER* 8 gm MDI INH PRN (21:43)
[2019-11-28] MEDS: Lidocaine PATCH 5%* 1 PATCH TRANSDERM SCH (08:18)
[2019-11-28] MEDS: Lidocaine 4% GEL* 10 GM TUBE TOPICAL PRN (08:18)
[2019-11-28] MEDS: Gabapentin CAP(*) 100 MG PO SCH ×3 (08:19→19:21)
[2019-11-28] MEDS: DIVALPROEX SPRINKLE 125 MG PO SCH ×2 (08:19→19:25)
[2019-11-28] MEDS: metFORMIN* 500 MG TAB PO SCH (08:19)
[2019-11-28] MEDS: Haloperidol TAB* 5 MG PO PRN (08:56)
[2019-11-28] MEDS: hydrOXYzine HCL TAB* 50 MG PO PRN (08:56)
[2019-11-28] MEDS: Al Hydrox/Mg Hydrox/Simet LIQ* 30 ML UDC PO PRN ×2 (09:12→15:32)
[2019-11-28] MEDS ORDERED: chlorproMAZINE TAB* 100 MG ONE (11:40)
[2019-11-28] MEDS ORDERED: chlorproMAZINE TAB* 100 MG PO ONE (12:30)
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
[2019-11-28] MEDS: Hemorrhoidal OINT TOPICAL PRN (18:41)
[2019-11-28] MEDS: Mirtazapine TAB* 15 MG PO SCH (19:22)
[2019-11-28] MEDS: Lidocaine Patch REMOVE* 1 NOTE MISC SCH (19:23)
[2019-11-28] MEDS: MIRTAZAPINE 15 MG PO SCH (19:31)
[2019-11-28] MEDS: OLANzapine TAB*ODT* 10 MG TAB PO SCH (19:31)
[2019-11-29] MEDS: Acetaminophen TAB* 325 MG PO PRN (06:31)
[2019-11-29] MEDS: Ibuprofen TAB* 400 MG PO PRN (06:32)
[2019-11-29] MEDS: Lidocaine PATCH 5%* 1 PATCH TRANSDERM SCH (08:05)
[2019-11-29] MEDS: DIVALPROEX SPRINKLE 125 MG PO SCH (08:06)
[2019-11-29] MEDS: Gabapentin CAP(*) 100 MG PO SCH (08:08)
[2019-11-29] MEDS: metFORMIN* 500 MG TAB PO SCH (08:09)
[2019-11-29 10:09] VITALS: BP 131/69
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
== END 2019-11-29 09:30 | disposition home or self-care (01) | DRG 758 ==
LOC: ED 09:56 → BSU 13:55
PROVIDERS: ADMIT Psychiatry & Neurology Psychiatry; ATTEND Psychiatry & Neurology Psychiatry
PROC: 5A09357 Assistance with Respiratory Ventilation, Less than 24 Consecutive Hours, Continuous Positive Airway Pressure (ICD-10-PCS; principal; 2019-11-25)
DX: F63.9 Impulse disorder, unspecified (principal); R45.851 Suicidal ideations; Z68.42 Body mass index [BMI] 45.0-49.9, adult; F31.9 Bipolar disorder, unspecified; F70 Mild intellectual disabilities; J45.909 Unspecified asthma, uncomplicated; E66.9 Obesity, unspecified; M54.9 Dorsalgia, unspecified; E11.40 Type 2 diabetes mellitus with diabetic neuropathy, unspecified; F81.9 Developmental disorder of scholastic skills, unspecified; F20.9 Schizophrenia, unspecified; Z91.5 Personal history of self-harm; Z79.84 Long term (current) use of oral hypoglycemic drugs; Z88.8 Allergy status to other drugs, medicaments and biological substances; Z79.899 Other long term (current) drug therapy
CPT/HCPCS: 36415; 80053; 80061; 80164; 80307; 80320; 80329; 81003; 81015; 83036; 84443; 85025; 87086; 94660; 96372; 99222; 99231; 99238; 99285; A9270-GY; G0480; J1200; J1630; J2060